=== PATIENT | female | born 1950 | race Caucasian/White ===

== ENCOUNTER 2017-11-29 15:30 | Emergency (ER) | payer MEDICARE, OTHER ==
[~2017-11-29] VITALS: Ht 162.6 cm; Wt 70.3 kg
--- OUTSIDE RECORDS SUMMARY | 2017-11-29 15:33 | XMS REPORT | Clinical Summary ---
Author Author [facility] [employer] Address Unknown Phone Unavailable Care Team Providers Care [facility] Hospitalist Name Role Phone Beni Uribe PCP Allergies Active Allergy Reactions Severity Noted Date Comments Prochlorperazine Other (See Comments) High 10/11/2017 Dystonia Iodine And Iodide Anaphylaxis High 04/05/2017 Containing Products Ioversol Anaphylaxis High 12/19/2007 THROAT SWELLING-INCIDENT REPORTED PER PATIENT DURING IVP 25 YEARS AGO (Iodine) Latex Rash High 08/08/2010 blisters Current Medications Prescription Sig. Disp. Refills Start End Date Status Date propranolol LA (INDERAL Take 120 mg by mouth Active LA) 120 MG 24 hr capsule daily. raloxifene (EVISTA) 60 mg Take 60 mg by mouth Active tablet daily. lisinopril Take 20 mg by mouth Active (PRINIVIL,ZESTRIL) 20 mg daily. tablet tiotropium-olodaterol Take 2 inhalations by Active (STIOLTO RESPIMAT) mouth every evening. 2.5-2.5 mcg/actuation inhalation solution potassium citrate Take 15 mEq by mouth 3 Active (UROCIT-K 15) 15 mEq (three) times a day with tablet extended release meals. docusate sodium (COLACE) Take 100 mg by mouth 2 Active 100 MG capsule (two) times a day. famotidine (PEPCID) 20 MG Take 20 mg by mouth 2 Active tablet (two) times a day. mycophenolate (CELLCEPT) Take 1,500 mg by mouth 2 Active 500 mg tablet (two) times a day. KRILL/OM-3/DHA/EPA/PHOSPH Take 1 capsule by mouth Active O/AST (MEGARED OMEGA-3 daily. KRILL OIL ORAL) butalbital-acetaminophen- Take 1 tablet by mouth Active caff (FIORICET, ESGIC) every 4 (four) hours as 50-325-40 mg per tablet needed for headaches. BIFIDOBACTERIUM INFANTIS Take 1 tablet by mouth Active (ALIGN ORAL) daily. venlafaxine (EFFEXOR) 75 Take 75 mg by mouth 2 Active MG tablet (two) times a day. 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 gabapentin (NEURONTIN) Take 600 mg by mouth 3 Active 600 mg tabletIndications: (three) times a day. 1 Intractable chronic tablet in the morning 2 migraine without aura and tablet in the evening with status migrainosus melatonin 5 mg Take 1 capsule by mouth Active capsuleIndications: Long nightly. term current use of systemic steroids cholecalciferol, vitamin Take 1 tablet by mouth Active D3, (VITAMIN D3) 5,000 daily. unit tabletIndications: Vitamin D deficiency predniSONE (DELTASONE) 1 TAKE 4 TABLETS EACH 360 tablet 1 11/09/19 05/10/20 Active mg tabletIndications: MORNING 18 18 Churg-Dottie syndrome predniSONE (DELTASONE) 5 3 tablets PO each 270 tablet 1 11/09/19 Active mg tabletIndications: morning. 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 2 tab each 18 ued night amitriptyline (ELAVIL) 50 Take 50 mg by mouth 10/09/19 Discontin MG tablet nightly. 18 ued SUMAtriptan (IMITREX) 50 Take 100 mg by mouth once 10/09/19 Discontin MG tablet as needed for migraine. 18 ued May repeat in 2 hours if unresolved. Do not exceed 200 mg in 24 hours. gabapentin (NEURONTIN) Take 300 mg by mouth 2 11/09/19 Discontin 300 mg capsule (two) times a day. 18 ued eszopiclone (LUNESTA) 2 Take 2 mg by mouth 11/09/19 Discontin MG tablet nightly. Take immediately 18 ued before bedtime omeprazole (PriLOSEC) 20 Take 20 mg by mouth 11/09/19 Discontin MG capsule daily. 18 ued acetaminophen-codeine Take 1-2 tablets by mouth 40 tablet 0 09/30/20 10/10/20 (TYLENOL WITH CODEINE #3) every 4 (four) hours as 17 17 300-30 mg per tablet needed for moderate pain for up to 10 days. predniSONE (DELTASONE) 20 3 tablets PO daily as 90 tablet 1 04/24/20 06/24/20 mg tabletIndications: directed 17 17 Churg-Dottie syndrome mycophenolate (CELLCEPT) Take 3 pills bid 180 tablet 4 04/25/2004/10 Discontin 500 mg tabletIndications: 17 18 ued Churg-Dottie syndrome predniSONE (DELTASONE) 5 Take 3 pills a day. 270 tablet 1 06/21/20 10/09/19 Discontin mg tablet 17 18 ued sulfamethoxazole-trimetho TAKE ONE (1) TABLET(S) BY 0 07/10/20 Discontin prim (BACTRIM DS) 800-160 MOUTH EVERY TWELVE HOURS 17 18 ued mg per tablet FOR 10 DAYS. famotidine (PEPCID) 20 MG TAKE ONE (1) TABLET(S) BY 0 07/18/20 Discontin tablet MOUTH TWICE A DAY. 17 18 ued mycophenolate (CELLCEPT) TAKE THREE (3) TABLET(S) 180 tablet 3 10/09/19 Discontin 500 mg tabletIndications: BY MOUTH TWICE A DAY. 18 18 ued Churg-Dottie syndrome predniSONE (DELTASONE) 5 Take 5 mg by mouth daily. 11/09/19 Discontin mg tablet Dose may fluctuate up to 18 ued 60mg daily. Has been on 5mg past 2 days. Doses less than 15mg appear to cause headaches. atorvastatin (LIPITOR) 40 Take 1 tablet (40 mg 30 tablet 0 10/11/19 11/09/19 Discontin MG tablet total) by mouth nightly 18 18 ued for 30 days. keTOROlac (TORadol) 10 mg Take 1 tablet (10 mg 20 tablet 0 10/11/19 10/16/19 tablet total) by mouth every 6 18 18 (six) hours as needed for moderate pain for up to 5 days. amoxicillin-pot Take 1 tablet by mouth 14 tablet 0 10/26/19 clavulanate (AUGMENTIN) every 12 (twelve) hours 18 18 875-125 mg per tablet for 7 days. Hospital, Clinic, or Ordered Dose Route Frequency Start End Date Status Other Facility Date Administered Medication keTOROlac (TORadol) 10 mg oral every 4 hours PRN 10/11/19 10/16/19 Ended tablet 10 mg 18 18 Active Problems Problem Noted Date Mixed hyperlipidemia 10/09/2017 Migraine with aura, intractable, with status migrainosus 10/08/2017 Diarrhea 06/23/2017 Intraventricular hemorrhage 05/27/2017 Obstructive hydrocephalus 05/27/2017 Intraparenchymal hematoma of brain 05/20/2017 Ascites 04/19/[address] of the abdomen 03/28/2017 Epigastric pain 03/28/2017 Early satiety 03/28/[address] scan 03/28/2017 Osteoporosis 05/25/2008 Encounters Date Type Specialty Care Team Description 11/08/2017 Office Visit Rheumatology Erick Arrieta MD Churg- Dottie syndrome (Primary Dx); Encounter for long-term (current) use of high-risk medication; 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; Intractable chronic migraine without aura and with status migrainosus; Vitamin D deficiency 11/07/2017 [facility] Radiology Erick Mane MD Renal calculus Encounter 11/07/2017 Ancillary Access Erick Mane MD Renal calculus Orders 11/07/2017 Transcribe Access Erick Mane MD Renal calculus ( Primary Orders Dx) 10/25/2017 Emergency Emergency Medicine Ben Patino MD Primary insomnia (Primary Deniz Proctor MD Dx); Cystitis 10/11/2017 Office Visit Rheumatology Erick Arrieta MD Churg- Dottie syndrome (Primary Dx); Encounter for long-term (current) use of high-risk medication; Intractable chronic migraine without aura and with status migrainosus; 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 10/11/2017 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, 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 10/09/2017 Orders Only Radiology Benitez Contreras 10/08/2017 Emergency Neurology Yasmany Avalos MD Migraine with aura, - Ronit Ramos MD intractable, with status 10/10/2017 migrainosus (Primary Dx); Intractable headache, unspecified chronicity pattern, unspecified headache type 10/08/2017 Procedure Pass Neurology 10/08/2017 Procedure Pass Neurology 10/08/2017 Procedure Pass Neurology 10/08/2017 Procedure Pass Neurology 10/08/2017 Procedure Pass Neurology 10/08/2017 Procedure Pass Neurology 09/23/2017 Hospital Radiology Erick Mane MD Renal calculus Encounter 09/23/2017 Transcribe Access Erick Mane MD Renal calculus ( Primary Orders Dx) 08/30/2017 Refill Rheumatology Erick Arrieta MD Churg-Dottie syndrome 07/19/2017 Office Visit Rheumatology Erick Arrieta MD Churg- Dottie syndrome (Primary Dx) 07/11/2017 Orders Only Rheumatology Erick Arrieta MD Churg- Dottie syndrome (Primary Dx); Encounter for long-term (current) use of high-risk medication; 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; Vitamin D deficiency 06/21/2017 Orders Only Rheumatology Tere Mcgrath MA 05/02/2017 Office Visit General Surgery Abhijeet Alcala MD Surgery follow-up (Primary Dx) 05/02/2017 [facility] Radiology Blue, Phuongdung Syl, Abdominal pain Encounter 05/02/2017 [facility] Radiology Blue, Phuongdung Syl, Abdominal pain , Encounter generalized; Cough 05/02/2017 Ancillary Radiology Blue, Phuongdung Syl, Abdominal pain Orders 05/02/2017 Transcribe Access Blue, Phuongdung Syl, Abdominal pain, Orders generalized (Primary Dx); Cough 04/29/2017 Telephone Rheumatology Tere Mcgrath MA 04/26/2017 Orders Only Rheumatology Tere Mcgrath MA Infrequent urination (Primary Dx); Acute cystitis without hematuria 04/24/2017 Lab Lab Erick Arrieta MD Churg-Dottie syndrome 04/24/2017 Office Visit Rheumatology Erick Arrieta MD Churg- Dottie syndrome (Primary Dx); 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; Encounter for long-term (current) use of high-risk medication; Anxiety and depression; Essential hypertension; Gastroesophageal reflux disease without esophagitis; Duodenal ulcer; Nephrolithiasis; Age-related osteoporosis without current pathological fracture 04/19/2017 [facility] General Surgery Abhijeet Alcala MD Ascites - Encounter 04/20/2017 04/19/2017 Procedure Pass General Surgery 04/19/2017 Surgery General Surgery Abhijeet Alcala MD LAPAROSCOPIC EXPLORATORY LAPAROTOMY AND OMENTAL BIOPSY and liver biopsy 04/17/2017 Anesthesia General Surgery [facility], Event Aniyah, DAY C[employer] COUNSELOR 04/17/2017 Orders Only GastroenterFrancesco Gill RN Other ascites (Primary Dx) 04/16/2017 Pre-Admit Pre-Admission Testing Abhijeet Alcala MD Pre- op testing (Primary Testing Dx) Appointment 04/16/2017 Lab Lab Caleb Ruvalcaba MD Other ascites 04/15/2017 Office Visit Gastroenterology Caleb Ruvalcaba MD Other ascites (Primary Dx); Epigastric pain; Abnormal CT of the abdomen; Early satiety; Diarrhea, unspecified type 04/15/2017 Telephone GastroenterCaleb Barr MD 04/05/2017 [facility] Radiology Caleb Ruvalcaba MD Other ascites Encounter 04/05/2017 Lab Caleb Cortez MD 04/05/2017 Orders Only GastroenterFrancesco Gill RN Other ascites (Primary Dx) 04/04/2017 Lab Caleb Cortez MD Pre-procedure lab exam; Other ascites 04/04/2017 Telephone GastroenterFrancesco Gill RN Pre- procedure lab exam (Primary Dx); Other ascites 04/03/2017 Orders Only Francesco Sanchez RN Other ascites (Primary Dx) 04/02/2017 Lab Lab Caleb Ruvalcaba MD Routine general medical examination at a health care facility (Primary Dx) 03/29/2017 Hospital Radiology Caleb Ruvalcaba MD Encounter 03/29/2017 Ancillary Radiology Caleb Ruvalcaba MD Orders 03/28/2017 Lab Lab Caleb Ruvalcaba MD Abnormal CT scan 03/28/2017 Office Visit GastroenterCaleb Barr MD Abnormal CT scan (Primary Dx); Early satiety; Abnormal CT of the abdomen; Epigastric pain after 11/28/2016 Immunizations Name Dates Previously Given Next Due FLUCELVAX QUAD PF (0.5mL 04/20/2017 syringe) Family History Medical History Relation Name Comments No Known Problems Brother Suicidality Brother Liver cancer Father Arrhythmia Mother Other Mother ITP Relation Name Status Comments Brother Alive Brother Father Mother Alive Social History Tobacco Use Types Packs/Day Years Used Date Never Smoker Smokeless Tobacco: Never Used Tobacco Cessation: Counseling Given: No Alcohol Use Drinks/Week oz/Week Comments No Sex Assigned at Date Recorded Not on file Last Filed Vital Signs Vital Sign Reading Time Taken Blood Pressure 139/87 11/08/2017 11:01 AM CDT Pulse 68 11/08/2017 11:01 AM CDT Temperature 36.6 C (97.8 F) 11/08/2017 11:01 AM CDT Respiratory Rate 18 10/25/2017 5:33 PM CDT Oxygen Saturation 98% 11/08/2017 11:01 AM CDT Inhaled Oxygen - - Concentration Weight 58.1 kg (128 lb) 11/08/2017 11:01 AM CDT Height 162.6 cm (5' 4") 11/08/2017 11:01 AM CDT Body Mass Index 21.97 11/08/2017 11:01 AM CDT Plan of Treatment Date Type Specialty Care Team Description 12/06/2017 Office Visit Rheumatology Erick Arrieta MD [address] [place] [address] [place] [address] [phone] 01/03/2018 Office Visit Rheumatology Erick Arrieta MD [address] [place] [address] [place] [address] [phone] 01/31/2018 Office Visit Rheumatology Erick Arrieta MD [address] [place] [address] [place] [address] [phone] Health Maintenance Due Date Last Done Comments COLONOSCOPY 1998 MAMMOGRAM 1998 SHINGRIX VACCINE (#1) 1998 PNEUMOCOCCAL-13 2013 INFLUENZA VACCINE 02/19/2018 04/20/2017, 04/04/2011, 04/01/2009, Additional history exists PNEUMOCOCCAL Completed 09/01/2003 POLYSACCHARIDE VACCINE AGE 65 AND OVER ZOSTER VACCINE Completed 10/05/2008 Procedures Procedure Name Priority Date/Time Associated Diagnosis Comments CA AN ELECTIVE Routine 04/19/2017 ENDOTRACHEAL AIRWAY 9:50 AM CDT Procedure Note - Emelyn Herrera MD - 04/19/2017 9:49 AM CDT Airway Performed by: EMELYN HERRERA Authorized by: EMELYN HERRERA Location: OR Urgency: Elective Difficult Airway: No Anesthesio logist: EMELYN HERRERA Performed by: anesthesio lian Preoxygena roya with 100% O2: Yes C-spine Precaution s Maintained Throughout : No Mask assessment prior to intubation : RSI-mask ventilatio n not attempted. Final Airway Type: Endotrache al airway Final Endotrache al Airway: ETT Cuffed: Yes Technique Used: Direct laryngosco py Devices/Me thods Used in Placement: Bougie Insertion Site: Oral Blade Type: Johnson Laryngosco pe Blade/Vide olaryngosc ope Blade Size: 2 ETT Size (mm): 7.0 Cuff at minimum occlusion pressure: Yes Measured from: Teeth ETT to Teeth (cm): 20 Placement Verified by: CO2 detection Laryngosc opic view: Grade IIa - partial view of glottis Rapid Sequence Induction (RSI): Yes Modified RSI: No Number of Attempts at Approach: 2 (attempt x 1 by resident, x1 by staff) LAPAROSCOPIC EXPLORATORY 04/19/2017 Ascites LAPAROTOMY AND OMENTAL 8:00 AM CDT BIOPSY and liver biopsy Case Notes REQ 0800 START; POSSIBLE EXTENDED STAY Special Needs REQ 0800 START; POSSIBLE EXTENDED STAY after 11/28/2016 Results * XR Kub Kidney Ureter Bladder (11/07/2017 2:40 PM) Only the most recent of 3 results within the time period is included. Specimen Performing Laboratory [facility] [address] [place] [address] Narrative EXAMINATION:XR KUB KIDNEY URETER BLADDER CLINICAL HISTORY:N20.0 Calculus of kidney, n20.0 COMPARISON:09/23/2017 IMPRESSION: 1.Was present throughout the colon. No intra-abdominal mass is seen. Suspicious osseous lesion is not seen. [facility]-[id number] Procedure Note Interface, Radiology Results Incoming - 11/07/2017 3:22 PM CDT EXAMINATION: XR KUB KIDNEY URETER BLADDER CLINICAL HISTORY: N20.0 Calculus of kidney, n20.0 COMPARISON: 09/23/2017 IMPRESSION: 1. Was present throughout the colon. No intra-abdominal mass is seen. Suspicious osseous lesion is not seen. [facility]-[id number] * Urinalysis (10/25/2017 6:20 PM) Component Value Ref Range Glucose, UA Negative Negative Bilirubin, UA Negative Negative Ketones, UA 1+ (A) Negative Specific gravity, UA =>1.030 1.001 - 1.035 Blood, UA Trace (A) Negative pH, UA 6.0 5.0 - 8.5 Protein, UA Negative Negative Urobilinogen, UA <2.0 <2.0 Nitrite, UA Positive (A) Negative Leukocyte esterase, UA Negative Negative Color, UA Yellow Appearance, UA Clear Specimen Performing Laboratory Urine DEPARTMENT OF PATHOLOGY AND GENOMIC MEDICINE, [place] [id number] [facility]. [address] [place] [address] * Gram stain (10/25/2017 6:19 PM) Only the most recent of 4 results within the time period is included. Component Value Ref Range Gram stain result No WBC's Many Gram negative rods Comment: Specimen Information Specimen Source: Urine Specimen Site: Urine, clean catch Specimen [facility]forming [facility] catch [address] [place] [address] * Urine culture (10/25/2017 6:19 PM) Only the most recent of 2 results within the time period is included. Component Value Ref Range Urine culture isolate Klebsiella pneumoniae >10-5 cfu/ml The performance characteristics of this assay on this isolate were validated by the Microbiology Laboratory at [facility]. This source has not been approved by the U.S. Food and Drug Administration. The results are not intended to be used as the sole means for clinical diagnosis or patient management. The Microbiology Laboratory is authorized under the clinical Laboratory Improvement Amendments of 1988 (CLIA-88) to perform high complexity testing. (A) Comment: Specimen Information Specimen Source: Urine Specimen Site: Urine, clean catch Urine culture isolate Streptococcus group B 10-4 cfu/ml (A) Urine culture isolate Mixed Gram positive dawson 10-3 cfu/ml (A) Specimen Performing Laboratory Urine - Urine, [facility] DEPARTMENT OF PATHOLOGY AND GENOMIC MEDICINE catch [address] [place] [address] Organism Antibiotic Method Susceptibility Klebsiella pneumoniae Ampicillin RUBEN >16 mcg/mL: Resistant Klebsiella pneumoniae Amoxicillin/Clavulanate RUBEN 4/2 mcg/mL: Susceptible Klebsiella pneumoniae Amikacin RUBEN <=4 mcg/mL: Susceptible Klebsiella pneumoniae Aztreonam RUBEN <=1 mcg/mL: Susceptible Klebsiella pneumoniae Ceftazidime RUBEN <=0.5 mcg/mL: Susceptible Klebsiella pneumoniae Ciprofloxacin RUBEN 1 mcg/mL: Susceptible Klebsiella pneumoniae Ceftriaxone RUBEN <=0.5 mcg/mL: Susceptible Klebsiella pneumoniae Cefuroxime Sodium RUBEN 16 mcg/mL: Resistant Klebsiella pneumoniae Cefazolin RUBEN 4 mcg/mL: Resistant Klebsiella pneumoniae Cefipime RUBEN <=0.5 mcg/mL: Susceptible Klebsiella pneumoniae Nitrofurantoin RUBEN >64 mcg/mL: Resistant Klebsiella pneumoniae Cefoxitin RUBEN 16 mcg/mL: Resistant Klebsiella pneumoniae Gentamicin RUBEN 1 mcg/mL: Susceptible Klebsiella pneumoniae Imipenem RUBEN <=0.25 mcg/mL: Susceptible Klebsiella pneumoniae Levofloxacin RUBEN <=1 mcg/mL: Susceptible Klebsiella pneumoniae Meropenem RUBEN <=0.125 mcg/mL: Susceptible Klebsiella pneumoniae Tobramycin RUBEN 1 mcg/mL: Susceptible Klebsiella pneumoniae Ampicillin/Sulbactam RUBEN 16/8 mcg/mL: Resistant Klebsiella pneumoniae Trimethoprim/Sulfamethoxa RUBEN >2/38 mcg/mL: Resistant zole Klebsiella pneumoniae Tetracycline RUBEN 4 mcg/mL: Susceptible Klebsiella pneumoniae Piperacillin/Tazobactam RUBEN 8/4 mcg/mL: Susceptible Klebsiella pneumoniae Ertapenem RUBEN <=0.125 mcg/mL: Susceptible Klebsiella pneumoniae Tigecycline RUBEN 2 mcg/mL: Susceptible * CT Head Wo Contrast (10/25/2017 5:57 PM) Specimen Performing Laboratory [address] [address] Narrative EXAMINATION:CT HEAD WO CONTRAST CLINICAL HISTORY:HEADACHE COMPARISON:October 09, 2017 TECHNIQUE: CT imaging was performed with iterative reconstruction technique and/ or automated exposure control to reduce radiation dose. Findings: No intracranial hemorrhage, acute transcortical ischemia, extra-axial fluid collections or parenchymal mass lesions. No skull fractures or aggressive bony lesions. Stable chronic insult in left basal ganglia. Visualized paranasal sinuses and mastoid air cells are clear. Right frontal louise hole. IMPRESSION: No acute intracranial abnormalities. [id number] Procedure Note Interface, Radiology Results Incoming - 10/25/2017 6:04 PM CDT EXAMINATION: CT HEAD WO CONTRAST CLINICAL HISTORY: HEADACHE COMPARISON: October 09, 2017 TECHNIQUE: CT imaging was performed with iterative reconstruction technique and/ or automated exposure control to reduce radiation dose. Findings: No intracranial hemorrhage, acute transcortical ischemia, extra-axial fluid collections or parenchymal mass lesions. No skull fractures or aggressive bony lesions. Stable chronic insult in left basal ganglia. Visualized paranasal sinuses and mastoid air cells are clear. Right frontal louise hole. IMPRESSION: No acute intracranial abnormalities. [id number] * West Nile virus by PCR, CSF (10/09/2017 12:17 PM) Component Value Ref Range West Nile virus PCR, CSF Not-Detected Not-Detected West Nile virus PCR, CSF See link below for PDF Lab ReportComment: Specimen Performing Laboratory [facility] DEPARTMENT OF PATHOLOGY AND GENOMIC MEDICINE [address] [place] [address] * EMANUEL virus, quantitative PCR (10/09/2017 12:17 PM) Component Value Ref Range EMANUEL virus result Not-Detected Not-Detected copies/mL EMANUEL virus qPCR quant See link below for PDF Lab ReportComment: Specimen Performing Laboratory [facility] [place] [address] * Cytomegalovirus by PCR (10/09/2017 12:17 PM) Component Value Ref Range Cytomegalovirus by PCR Not-Detected Not-Detected IU/mL Cytomegalovirus by PCR See link below for PDF Lab ReportComment: Specimen Performing Laboratory [facility] DEPARTMENT OF PATHOLOGY [facility] MEDICINE [address] [place] [address] * Varicella zoster by PCR (10/09/2017 12:17 PM) Component Value Ref Range VZV result Not-Detected Not-Detected copies/mL Varicella zoster, PCR See link below for PDF Lab ReportComment: Specimen Performing Laboratory [facility] DEPARTMENT OF PATHOLOGY AND GENOMIC MEDICINE [address] [place] [address] * Herpes simplex virus by PCR (10/09/2017 12:17 PM) Component Value Ref Range Herpes virus, PCR Not-Detected Not-Detected Herpes virus, PCR See link below for PDF Lab ReportComment: Specimen Performing Laboratory [facility] [place] [address] * Flow cytometry evaluation (10/09/2017 12:17 PM) Component Value Ref Range Flow cytometry evaluation See link below for PDF Lab Report Specimen Performing Laboratory [facility] DEPARTMENT OF PATHOLOGY AND GENOMIC MEDICINE [address] [place], [place] [id number] * Ulises Duncan Virus (EBV) by PCR (10/09/2017 12:17 PM) Component Value Ref Range Ulises Duncan virus, PCR Not-Detected Not-Detected copies/mL Ulises Duncan virus, PCR See link below for PDF Lab ReportComment: Specimen Performing Laboratory [facility] DEPARTMENT OF PATHOLOGY AND GENOMIC MEDICINE [address] [place] [id number] * IR Lumbar Puncture by Radiology (10/09/2017 11:40 AM) Specimen Performing Laboratory [place] [id number] Narrative EXAMINATION:IR LUMBAR PUNCTURE COMPARISON:None CLINICAL HISTORY:headache PROCEDURE: Local anesthesia was achieved with 1% lidocaine. Under fluoroscopic guidance a 22-gauge spinal needle was placed into the thecal sac at L4-5. The opening pressure was less than 12 cm of water. 21 cc's of clear colorless CSF were removed and sent to lab for analysis. The patient tolerated the procedure well and was returned to AOD for recovery. IMPRESSION: Uneventful lumbar puncture. Note: Total fluoroscopy time was 1 minute 21 seconds. 0 radiographs. [facility]-[id number] Procedure Note [facility], Radiology Results Incoming - 10/09/2017 1:27 PM CDT EXAMINATION: IR LUMBAR PUNCTURE COMPARISON: None CLINICAL HISTORY: headache PROCEDURE: Local anesthesia was achieved with 1% lidocaine. Under fluoroscopic guidance a 22-gauge spinal needle was placed into the thecal sac at L4-5. The opening pressure was less than 12 cm of water. 21 cc's of clear colorless CSF were removed and sent to lab for analysis. The patient tolerated the procedure well and was returned to AOD for recovery. IMPRESSION: Uneventful lumbar puncture. Note: Total fluoroscopy time was 1 minute 21 seconds. 0 radiographs. [facility]-[id number] * IgG synthesis rate study (10/09/2017 11:37 AM) Component Value Ref Range IgG albumin ratio, CSF 0.07 0.00 - 0.23 IgG index, CSF 0.48 0.01 - 0.63 IgG synthetic rate 0.86 -9.90 - 3.30 mg/day Q-albumin ratio, CSF 8.13 (H) 2.40 - 8.10 IgG, CSF 2.18 1.00 - 3.00 mg/dL Albumin, CSF 30.09 (H) 10.00 - 30.00 mg/dL IgG 554 (L) 700 - 1,600 mg/dL Albumin, S 3,700.0 3,640.0 - 5,304.0 mg/dL Specimen Performing Laboratory Cerebrospinal fluid [facility] DEPARTMENT OF PATHOLOGY AND [facility] MEDICINE [address] [place] [id number] * West Nile virus antibody panel, CSF (10/09/2017 11:37 AM) Component Value Ref Range West Nile IgG, CSF 0.05 <=1.29 IV Comment: INTERPRETIVE INFORMATION: West Nile Virus Ab IgG by MIKAELA, CSF 1.29 IV or less ....... Negative: No significant level of West Nile virus IgG antibody detected. 1.30 - 1.49 IV ........ Equivocal: Questionable presence of West Nile virus IgG antibody detected. Repeat testing in 10-14 days may be helpful. 1.50 IV or greater .... Positive: Presence of IgG antibody to West Nile virus detected, suggestive of current or past infection. This test is intended to be used as a semi-quantitative means of detecting West Nile virus-specific IgG in CSF samples in which there is a clinical suspicion of West Nile Virus infection. This test should not be used solely for quantitative purposes, nor should the results be used without correlation to clinical history or other data. Because other members of the Flaviviridae family, such as [place] encephalitis virus, show extensive cross-reactivity with West Nile virus, serologic testing specific for these species should be considered. The detection of antibodies to West Nile virus in cerebrospinal fluid may indicate central nervous system infection. However, consideration must be given to possible contamination by blood or transfer of serum antibodies across the blood-brain barrier. Test developed and characteristics determined by [facility]. See Compliance Statement B: [employer]/[facility] West Nile IgM, CSF 0.00 <=0.89 IV Comment: INTERPRETIVE INFORMATION: West Nile Virus Ab IgM by MIKAELA, CSF 0.89 IV or less ...... Negative - No significant level of West Nile virus IgM antibody detected. 0.90-1.10 IV ......... Equivocal - Questionable presence of West Nile virus IgM antibody detected. Repeat testing in 10-14 days may be helpful. 1.11 IV or greater ... Positive - Presence of IgM antibody to West Nile virus detected, suggestive of current or recent infection. This test is intended to be used as a semi-quantitative means of detecting West Nile virus-specific IgM in CSF samples in which there is a clinical suspicion of West Nile virus infection. This test should not be used solely for quantitative purposes, nor should the results be used without correlation to clinical history or other data. Because other members of the Flaviviridae family, such as [place] encephalitis virus, show extensive cross-reactivity with West Nile virus, serologic testing specific for these species should be considered. The detection of antibodies to West Nile virus in cerebrospinal fluid may indicate central nervous system infection. However, consideration must be given to possible contamination by blood or transfer of serum antibodies across the blood-brain barrier. Test developed and characteristics determined by [facility]. See Compliance Statement B: [employer]/CS Performed by [facility], [address] [place] [id number] [email or web address], Raad Flores MD - Lab. Director Specimen Performing Laboratory Cerebrospinal fluid [address] [address] * AFB culture (10/09/2017 11:37 AM) Only the most recent of 2 results within the time period is included. Component Value Ref Range AFB culture isolate No growth after 6 weeks of incubation. Comment: Specimen Information Specimen Source: CSF (Spinal Fluid) Specimen Site: CSF (spinal fluid) Specimen Performing Laboratory Cerebrospinal fluid - CSF [facility] DEPARTMENT OF PATHOLOGY AND GENOMIC MEDICINE (spinal fluid) [address] [place] [address] * Cryptococcal antigen, screen (10/09/2017 11:37 AM) Component Value Ref Range Cryptococcal Ag Negative - No Cryptococcus antigen detected. Comment: Specimen Information Specimen Source: CSF (Spinal Fluid) Specimen Site: CSF (spinal fluid) Specimen Performing Laboratory Cerebrospinal fluid - CSF [facility] DEPARTMENT OF PATHOLOGY AND GENOMIC MEDICINE (spinal fluid) [address] [place] [address] * Oligoclonal banding, CSF (10/09/2017 11:37 AM) Component Value Ref Range Protein, CSF 40 15 - 45 mg/dL Prealbumin, CSF 5.0 3.5 - 11.1 % Albumin, CSF 64.1 40.8 - 66.2 % Alpha 1, CSF 3.6 2.3 - 6.4 % Alpha 2, CSF 6.6 6.1 - 12.6 % Beta, CSF 12.5 11.7 - 24.1 % Gamma, CSF 8.2 5.6 - 12.2 % CSF extended See Comment interpretation Comment: An abnormal CSF protein study with increased Q-albumin but total protein within normal limits suggesting minimal disruption of the blood brain barrier. No oligoclonal bands are seen. CSF interpretation See CommentComment: Yvonne Nixon, PhD; Imelda Millard, PhD; Lizeth Johnson MD Specimen Performing Laboratory Cerebrospinal fluid [facility] DEPARTMENT OF PATHOLOGY AND GENOMIC MEDICINE [address] [place] [address] * CSF culture (10/09/2017 11:37 AM) Component Value Ref Range CSF culture isolate No growth after 3 days. Comment: Specimen Information Specimen Source: CSF (Spinal Fluid) Specimen Site: CSF (spinal fluid) Specimen Performing Laboratory Cerebrospinal fluid - CSF [facility] DEPARTMENT OF PATHOLOGY AND GENOMIC [facility] (spinal fluid) [address] [place] [address] * Fungus culture (10/09/2017 11:37 AM) Component Value Ref Range Fungus culture isolate No growth after 4 weeks of incubation. Comment: Specimen Information Specimen Source: CSF (Spinal Fluid) Specimen Site: CSF (spinal fluid) Specimen Performing Laboratory Cerebrospinal fluid - CSF [facility] DEPARTMENT OF PATHOLOGY AND GENOMIC MEDICINE (spinal fluid) [address] [place] [address] * CSF cell count with differential (10/09/2017 11:37 AM) Component Value Ref Range Color, CSF Colorless Appearance, CSF Clear RBC, CSF 1 0 - 1 /CMM WBC, CSF 1 0 - 5 /CMM CSF mononuclear cell 1/CMM Specimen Performing Laboratory Cerebrospinal fluid [facility] DEPARTMENT OF PATHOLOGY AND GENOMIC MEDICINE [address] [place] [address] * Glucose level, CSF (10/09/2017 11:37 AM) Component Value Ref Range Glucose, CSF 66 40 - 70 mg/dL Specimen Performing Laboratory Cerebrospinal fluid [facility] DEPARTMENT OF PATHOLOGY AND GENOMIC MEDICINE [address] [place] [address] * MRI Brain W Wo Contrast (10/09/2017 8:46 AM) Specimen [place] [address] Narrative EXAMINATION: MRI BRAIN W WO CONTRAST COMPARISON: None CLINICAL HISTORY Vasculitis. TECHNIQUE: Multiplanar multisequence examination was performed with and without contrast FINDINGS: There is no evidence of diffusion restriction. The ventricles and subarachnoid spaces are diffusely dilated. There is a chronic hemorrhagic insult in the left basal ganglia with subacute to chronic blood degradation byproducts and loss of volume. There are multiple small foci of chronic microvascular ischemia in the centrum semiovale bilaterally. There are no abnormal enhancing lesions within the brain parenchyma or the leptomeninges. Comparison to an outside MRI done October 07, 2017 shows no interval changes. 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 Mild involutional changes and few foci of chronic microvascular ischemia in the centrum semiovale bilaterally. No abnormal enhancing lesions. [id number] Procedure Note Interface, Radiology Results Incoming - 10/09/2017 8:53 AM CDT EXAMINATION: MRI BRAIN W WO CONTRAST COMPARISON: None CLINICAL HISTORY Vasculitis. TECHNIQUE: Multiplanar multisequence examination was performed with and without contrast FINDINGS: There is no evidence of diffusion restriction. The ventricles and subarachnoid spaces are diffusely dilated. There is a chronic hemorrhagic insult in the left basal ganglia with subacute to chronic blood degradation byproducts and loss of volume. There are multiple small foci of chronic microvascular ischemia in the centrum semiovale bilaterally. There are no abnormal enhancing lesions within the brain parenchyma or the leptomeninges. Comparison to an outside MRI done October 07, 2017 shows no interval changes. 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 Mild involutional changes and few foci of chronic microvascular ischemia in the centrum semiovale bilaterally. No abnormal enhancing lesions. [facility]-[id number] * MRI Cervical Spine Wo Contrast (10/09/2017 8:20 AM) Specimen Performing Laboratory [facility] [address] [place] [address] Narrative EXAMINATION:MRI CERVICAL SPINE WO CONTRAST COMPARISON:None CLINICAL HISTORY:Pain FINDINGS: There is mild C3-4 degenerative disc change with a minimal disc bulge. The discs are otherwise unremarkable. There is no malalignment, and the spinal canal is of normal diameter. The neural foramina are patent. The cord is of normal size and contains no areas of abnormal signal intensity. The craniovertebral junction and visualized portion of the posterior fossa are normal. The bone marrow is normal. IMPRESSION: Unremarkable study. [facility]-[id number] Procedure Note Interface, Radiology Results - 10/09/2017 8:28 AM CDT EXAMINATION: MRI CERVICAL SPINE WO CONTRAST COMPARISON: None CLINICAL HISTORY: Pain FINDINGS: There is mild C3-4 degenerative disc change with a minimal disc bulge. The discs are otherwise unremarkable. There is no malalignment, and the spinal canal is of normal diameter. The neural foramina are patent. The cord is of normal size and contains no areas of abnormal signal intensity. The craniovertebral junction and visualized portion of the posterior fossa are normal. The bone marrow is normal. IMPRESSION: Unremarkable study. [facility]-[id number] * MRA Head Wo Contrast (10/09/2017 8:19 AM) Specimen Performing Laboratory [facility] [address] [place] [address] Narrative EXAMINATION:MRA HEAD WO CONTRAST CLINICAL HISTORY:STROKE COMPARISON: None. FINDINGS: Noncontrast 3-D [id number] MRA of the head is interpreted. Source images, multiplanar reformats, and three-dimensional reformats are provided. No proximal branch occlusion or high-grade stenosis is seen. No aneurysm or vascular malformation is identified. There is a origin the left [employer]. The right vertebral artery is dominant. IMPRESSION: Unremarkable MRA of the head. [facility]-[id number] Procedure Note Interface, Radiology Results Incoming - 10/09/2017 8:25 AM CDT EXAMINATION: MRA HEAD WO CONTRAST CLINICAL HISTORY: STROKE COMPARISON: None. FINDINGS: Noncontrast 3-D [id number] MRA of the head is interpreted. Source images, multiplanar reformats, and three-dimensional reformats are provided. No proximal branch occlusion or high-grade stenosis is seen. No aneurysm or vascular malformation is identified. There is a origin the left [employer]. The right vertebral artery is dominant. IMPRESSION: Unremarkable MRA of the head. [id number] * MRA Neck Wo Contrast (10/09/2017 8:19 AM) Specimen Performing Laboratory [facility] [address] [place] [address] Narrative EXAMINATION:MRA NECK WO CONTRAST CLINICAL HISTORY:STROKE COMPARISON:None. TECHNIQUE: [id number] MR angiography was performed without contrast and includes 3-D MIP image reconstructions FINDINGS: The visualized distal common carotid artery cervical segments and bifurcations are patent. The visualized proximal internal carotid artery cervical segments are patent and show no evidence of stenosis by NASCET criteria. There is vertebral artery patency with right vertebral dominance. There is no definite intimal dissection. IMPRESSION: Essentially unremarkable examination. No definite ICA stenosis by NASCET criteria. [id number] Procedure Note [facility], Radiology Results Incoming - 10/09/2017 8:24 AM CDT EXAMINATION: MRA NECK WO CONTRAST CLINICAL HISTORY: STROKE COMPARISON: None. TECHNIQUE: Ouzo-ue-qvnnli MR angiography was performed without contrast and includes 3-D MIP image reconstructions FINDINGS: The visualized distal common carotid artery cervical segments and bifurcations are patent. The visualized proximal internal carotid artery cervical segments are patent and show no evidence of stenosis by NASCET criteria. There is vertebral artery patency with right vertebral dominance. There is no definite intimal dissection. IMPRESSION: Essentially unremarkable examination. No definite ICA stenosis by NASCET criteria. [id number] * Syphilis treponemal IgG (10/08/2017 8:45 PM) Component Value Ref Range Syphilis treponemal IgG Non-reactiveComment: Non-reactive: No serological Non-reactive evidence of Syphilis infection Specimen Performing Laboratory Serum [facility] DEPARTMENT OF PATHOLOGY AND GENOMIC MEDICINE [address] [place] [address] * Homocystine, plasma (10/08/2017 8:45 PM) Component Value Ref Range Homocysteine 12.7 0.0 - 15.0 umol/L Comment: The risk for coronary vascular disease increases progressively with homocysteine concentration. A 3.4 times greater risk is associated with a homocysteine concentration of greater than 15.8 umol/L as compared to a concentration below 14.1 umol/L. Specimen Performing Laboratory Plasma specimen [facility] DEPARTMENT OF PATHOLOGY AND GENOMIC MEDICINE [address] [place] [address] * Vitamin D 25 hydroxy level (10/08/2017 8:45 PM) Only the most recent of 2 results within the time period is included. Component Value Ref Range Vitamin D, 25-hydroxy 12.6 (L) 30.0 - 150.0 ng/mL Comment: This assay reports the sum of 25-hydroxy vitamin D3 and 25-hydroxy vitamin D2. Reference range: 0-17 years: Deficiency: less than 20ng/mL Optimum level: greater than or equal to 20 ng/mL. 18 years and older: Deficiency: less than 20ng/mL Insufficiency: 20-29 ng/mL Optimum Level: 30-80 ng/mL The assay reportable range is 3.4 155.9 ng/mL. Levels higher than 150 ng/mL may be associated with toxicity. If toxicity is clinically suspected and the reported result is >155.9 ng/mL,contact lab for alternative methods to obtain a definitive level. If separate quantitation of 25-hydroxy vitamin D3 and 25-hydroxy vitamin D2 is needed, please contact lab for alternative methods. Specimen Performing Laboratory Blood [facility] DEPARTMENT OF PATHOLOGY AND GENOMIC MEDICINE [address] [place] [address] * HIV 1, 2 antibody (10/08/2017 8:45 PM) Component Value Ref Range HIV 1, 2 antibody Non-reactive Non-reactive Comment: Starting from October 18 2015, 4th generation HIV screening and confirmation assays are in use at [facility], consistent with the CDC-recommended algorithm. The screening test detects antibodies to HIV-1, HIV-2 and the p24 antigen. Positive screening results will be automatically reflexed to a HIV-1/HIV-2 differentiation assay. Indeterminant HIV-1 results will be further automatically reflexed to a nucleic acid test for detection of acute infection. Western blot will no longer be performed as a confirmation test. For a quick reference guide on the testing algorithm, please refer to: http://stacks.cdc.gov/view/cdc/68924. Specimen Performing Laboratory Blood [facility] DEPARTMENT OF PATHOLOGY AND GENOMIC MEDICINE [address] [place] [address] * Anti-neutrophilic cytoplasmic Abs panel (10/08/2017 8:45 PM) Only the most recent of 2 results within the time period is included. Component Value Ref Range ANCA screen Negative Negative Specimen Performing Laboratory Blood [facility] DEPARTMENT OF PATHOLOGY AND [address] [address] * Sedimentation rate (10/08/2017 8:45 PM) Only the most recent of 2 results within the time period is included. Component Value Ref Range Sedimentation rate 5 0 - 20 mm/hr Specimen Performing Laboratory Blood [facility] DEPARTMENT OF PATHOLOGY AND GENOMIC MEDICINE [address] [place] [address] * Rheumatoid factor (10/08/2017 8:45 PM) Component Value Ref Range Rheumatoid factor <10 0 - 13 IU/mL Specimen Performing Laboratory Plasma specimen [facility] DEPARTMENT OF PATHOLOGY AND GENOMIC MEDICINE [address] [place] [address] * C-reactive protein (10/08/2017 8:45 PM) Only the most recent of 3 results within the time period is included. Component Value Ref Range CRP <0.30 0.00 - 0.50 mg/dL Specimen Performing Laboratory Plasma specimen [facility] DEPARTMENT OF PATHOLOGY AND [facility] MEDICINE [address] [place] [address] * TARAH (10/08/2017 8:45 PM) Only the most recent of 2 results within the time period is included. Component Value Ref Range TARAH screen Negative Negative Specimen Performing Laboratory Blood [facility] DEPARTMENT OF PATHOLOGY [address] [address] * T3 (10/08/2017 8:45 PM) Component Value Ref Range T3 108 80 - 200 ng/dL Specimen Performing Laboratory Plasma specimen [facility] DEPARTMENT OF PATHOLOGY AND GENOMIC MEDICINE [address] [place] [address] * T4, free (10/08/2017 8:45 PM) Component Value Ref Range T4, free 1.4 0.9 - 1.7 ng/dL Specimen Performing Laboratory Plasma specimen [facility] DEPARTMENT OF PATHOLOGY [address] [address] * Folate RBC (group test) (10/08/2017 8:45 PM) Component Value Ref Range RBC folate 832 499 - 1,504 ng/mL Specimen Performing Laboratory Blood [facility] DEPARTMENT OF PATHOLOGY AND [facility]ICINE [address] [place] [address] * Folate level (10/08/2017 8:45 PM) Component Value Ref Range Folate 11.3 4.8 - 24.2 ng/mL Specimen Performing Laboratory Serum [facility] DEPARTMENT OF PATHOLOGY [address] [address] * Lipid panel (10/08/2017 8:45 PM) Component Value Ref Range Cholesterol 277 (H) <200 mg/dL Triglycerides 106 <150 mg/dL HDL cholesterol 84 >40 mg/dL LDL cholesterol 175 (H)Comment: Result obtained by direct LDL <100 mg/dL measurement Lipid panel SeeBelow interpretation Comment: Total Cholesterol (mg/dL) <200 Desirable 200-239 Borderline-high >=240 High Triglycerides (mg/dL) <150 Normal 150-199 Borderline-high 200-499 High >=500 Very high HDL Cholesterol (mg/dL) <40 Low (male) <40 Low (female) LDL Cholesterol (mg/dL) <100 Optimal 100-129 Near or above optimal 130-159 Borderline-high 160-189 High >=190 Very high Risk Catergories that modify LDL goals. Risk Catergories LDL goal (mg/dL) CHD and CHD risk equivalent <100 (10-year risk >20%) Multiple (2+) risk factors <130 (10-year risk=<20%) 0-1 risk factors <160 (<10-year risk) Defining levels of lipids in metabolic syndrome Triglycerides >=150 mg/dL HDL Cholesterol Men <40 mg/dL Women <40 mg/dL Non-HDL cholesterol is a second target for therapy in persons with high triglycerides (>=200 mg/dL) Specimen Performing Laboratory Plasma specimen [facility] DEPARTMENT OF PATHOLOGY AND GENOMIC MEDICINE [address] [place] [address] * C3 complement component (10/08/2017 7:20 PM) Only the most recent of 2 results within the time period is included. Component Value Ref Range C3 complement 130 90 - 180 mg/dL Specimen Performing Laboratory Plasma specimen [facility] DE[place]MENT [place] [address] * C4 complement component (10/08/2017 7:20 PM) Only the most recent of 2 results within the time period is included. Component Value Ref Range C4 complement 29 10 - 40 mg/dL Specimen Performing Laboratory Plasma specimen [facility] DEPARTMENT [place] [address] * CT Stroke Brain Wo Contrast (10/08/2017 5:42 PM) Specimen Performing Laboratory [facility] [address] [place] [address] Narrative EXAMINATION: CT STROKE BRAIN WO CONTRAST COMPARISON: September 19, 2017 CLINICAL HISTORY STROKE. TECHNIQUE: Non-contrast CT scan of the head with thin-section contiguous transaxial images from the skull base to the vertex. CT scans are performed using radiation dose reduction techniques. Technical factors are evaluated and adjusted to ensure appropriate moderation of exposure. Automated dose management technology is applied to adjust radiation exposure while achieving a highly diagnostic quality image. FINDINGS: Nonenhanced emergency cranial CT was performed across the 17 34 hours. There is generalized ventricular and sulcal dilatation. There are chronic lacunar ischemic changes in the left hemisphere within the left basal ganglia, associated with volume loss. There is no acute hemorrhage or extra-axial mass or fluid collection. There are no hyperdense vessels. Overall, there are no interval changes. IMPRESSION: Stable involutional changes. Stable chronic lacunar ischemic changes in the left basal ganglia. No acute hemorrhage. Findings were discussed with and acknowledged by YASMANY AVALOS at 2017 5:47 PM. [facility]-[id number] Procedure Note Hm Interface, Radiology Results Incoming - 10/08/2017 5:51 PM CDT EXAMINATION: CT STROKE BRAIN WO CONTRAST COMPARISON: September 19, 2017 CLINICAL HISTORY STROKE. TECHNIQUE: Non-contrast CT scan of the head with thin-section contiguous transaxial images from the skull base to the vertex. CT scans are performed using radiation dose reduction techniques. Technical factors are evaluated and adjusted to ensure appropriate moderation of exposure. Automated dose management technology is applied to adjust radiation exposure while achieving a highly diagnostic quality image. FINDINGS: Nonenhanced emergency cranial CT was performed across the 17 34 hours. There is generalized ventricular and sulcal dilatation. There are chronic lacunar ischemic changes in the left hemisphere within the left basal ganglia, associated with volume loss. There is no acute hemorrhage or extra-axial mass or fluid collection. There are no hyperdense vessels. Overall, there are no interval changes. IMPRESSION: Stable involutional changes. Stable chronic lacunar ischemic changes in the left basal ganglia. No acute hemorrhage. Findings were discussed with and acknowledged by YASMANY AVALOS at 2017 5:47 PM. [facility]-[id number] * Urinalysis screen and microscopy, with reflex to culture (10/08/2017 5:30 PM) Component Value Ref Range Specimen site Clean catch Color, UA Yellow Appearance, UA Clear Specific gravity, UA 1.017 1.001 - 1.035 pH, UA 6.0 5.0 - 8.5 Protein, UA Negative Negative Glucose, UA Negative Negative Ketones, UA Trace (A) Negative Bilirubin, UA Negative Negative Blood, UA Negative Negative Nitrite, UA Positive (A) Negative Urobilinogen, UA <2.0 <2.0 Leukocyte esterase, UA Negative Negative Epithelial cells, UA 1 /HPF WBC, UA 5 (H) 0 - 4 /HPF RBC, UA 3 (H) 0 - 2 /HPF Bacteria, UA Moderate (A) None seen Yeast, UA None seen Yeast with pseudohyphae, None seen UA Specimen Performing Laboratory Urine [facility] DEPARTMENT OF PATHOLOGY AND GENOMIC MEDICINE [address] [place] [address] * Estimated GFR (10/08/2017 5:20 PM) Only the most recent of 6 results within the time period is included. Component Value Ref Range GFR Non Af Amer >90 mL/min/1.73 m2 GFR Af Amer >90 mL/min/1.73 m2 Comment: Chronic kidney disease: <60 mL/min/1.73m2 Kidney failure: <15 mL/min/1.73m2 The estimated GFR is calculated from the IDMS-traceable Modification of Diet in Renal Disease Equation. The accuracy of the calculation is poor when the creatinine is normal. Calculated values >90 mL/min/1.73m2 are not reported. This equation has not been validated in children (<18 years), women, the elderly (>70 years), or ethnic groups other than Caucasians and Americans. Specimen Performing Laboratory Plasma specimen [facility] DEPARTMENT OF PATHOLOGY AND [address] [address] * Troponin (10/08/2017 5:20 PM) Component Value Ref Range Troponin <0.30 0.00 - 0.30 ng/mL Comment: 0.30 - 1.49 ng/ml May indicate increased risk of acute coronary syndrome. >=1.5 ng/ml Consistent with acute myocardial infarction. The diagnostic value of a single normal or non-diagnostic result is questionable. Serial samples at 2-6 hour intervals are required to rule out acute myocardial injury. Specimen Performing Laboratory Plasma specimen [facility] DEPARTMENT OF PATHOLOGY AND [address] [address] * Partial thromboplastin time, activated (10/08/2017 5:20 PM) Only the most recent of 4 results within the time period is included. Component Value Ref Range PTT 25.9 23.0 - 36.0 sec Comment: PTT therapeutic range for unfractionated heparin is 61.0-112.0 seconds which corresponds to Anti-Xa 0.3-0.7 U/ml. Specimen Performing Laboratory Blood [facility] DEPARTMENT OF PATHOLOGY AND [facility] MEDICINE [address] [place] [address] * Prothrombin time with INR (10/08/2017 5:20 PM) Only the most recent of 4 results within the time period is included. Component Value Ref Range Prothrombin time 12.6 12.0 - 15.0 sec INR 0.9 Comment: The International Normalized Ratio (INR) is a therapeutic monitoring tool for patients who are stable on oral anticoagulant therapy. An INR of 2.0-3.0 is suggested for deep vein thrombosis/pulmonary embolism. Specimen Performing Laboratory Blood [facility] DEPARTMENT OF PATHOLOGY AND GENOMIC MEDICINE [address] [place], [place] [id number] * CBC with platelet and differential (10/08/2017 5:20 PM) Only the most recent of 5 results within the time period is included. Component Value Ref Range WBC 5.46 4.50 - 11.00 k/uL RBC 4.51 4.20 - 5.50 m/uL HGB 14.0 12.0 - 16.0 g/dL HCT 43.3 37.0 - 47.0 % MCV 96.0 82.0 - 100.0 fL MCH 31.0 27.0 - 34.0 pg MCHC 32.3 31.0 - 37.0 g/dL RDW - SD 42.2 37.0 - 55.0 fL MPV 9.7 8.8 - 13.2 fL Platelet count 209 150 - 400 k/uL Nucleated RBC 0.00 /100 WBC Neutrophils 82.2 (H) 39.0 - 69.0 % Lymphocytes 10.6 (L) 25.0 - 45.0 % Monocytes 6.0 0.0 - 10.0 % Eosinophils 0.5 0.0 - 5.0 % Basophils 0.2 0.0 - 1.0 % Immature granulocytes 0.5Comment: "Immature granulocytes" 0.0 - 1.0 % (promyelocytes, myelocytes, metamyelocytes) Specimen Performing Laboratory Blood [facility] DEPARTMENT OF PATHOLOGY AND [facility]INE [address] [place] [address] * B natriuretic peptide (10/08/2017 5:20 PM) Component Value Ref Range BNP 52 0 - 100 pg/mL Specimen Performing Laboratory Blood [facility] DEPARTMENT OF PATHOLOGY AND [facility] [address] [place] [address] * Lactic acid level (10/08/2017 5:20 PM) Component Value Ref Range Lactic acid 1.3 0.5 - 2.2 mmol/L Specimen Performing Laboratory Plasma specimen [facility] DEPARTMENT OF PATHOLOGY AND [facility] [address] [place], [place] [id number] * Comprehensive metabolic panel (10/08/2017 5:20 PM) Only the most recent of 5 results within the time period is included. Component Value Ref Range Sodium 140 135 - 148 mEq/L Potassium 4.0 3.5 - 5.0 mEq/L Chloride 100 98 - 112 mEq/L CO2 28 24 - 31 mEq/L Anion gap 12 7 - 15 mEq/L Comment: Starting from October , anion gap calculation no longer incorporates potassium. Please note the change. BUN 15 8 - 23 mg/dL Creatinine 0.6 0.5 - 0.9 mg/dL Glucose 101 (H) 65 - 99 mg/dL Calcium 9.4 8.8 - 10.2 mg/dL Protein 6.6 6.3 - 8.3 g/dL Comment: 4.6-7.0 g/dL 1 week 4.4-7.6 g/dL 7 months-1year 5.1-7.3 g/dL 1-2 years 5.6-7.5 g/dL >3 years 6.0-8.0 g/dL 18-150 6.3-8.3 g/dL Albumin 3.6 3.5 - 5.0 g/dL A/G ratio 1.2 0.7 - 3.8 Alkaline phosphatase 53 35 - 104 U/L AST 21 10 - 35 U/L ALT 26 5 - 50 U/L Total bilirubin 0.3 0.0 - 1.2 mg/dL Specimen Performing Laboratory Plasma specimen [facility] DEPARTMENT OF PATHOLOGY AND GENOMIC MEDICINE [address] [place] [address] * XR Chest 1 Vw Portable (10/08/2017 4:44 PM) Specimen Performing [facility] [address] [place] [address] Narrative EXAMINATION:XR CHEST 1 VW PORTABLE CLINICAL HISTORY:altered mental status COMPARISON:05/02/2017 IMPRESSION: No significant change since the previous examination. Lungs are hypoinflated. Minimal atelectasis left costophrenic angle. No definite infiltrate, consolidation, pleural effusion or pneumothorax. Mildly prominent cardiac mediastinal silhouette, unchanged. Osseous degenerative changes. [facility]-[id number] Procedure Note Interface, Radiology Results Incoming - 10/08/2017 4:48 PM CDT EXAMINATION: XR CHEST 1 VW PORTABLE CLINICAL HISTORY: altered mental status COMPARISON: 05/02/2017 IMPRESSION: No significant change since the previous examination. Lungs are hypoinflated. Minimal atelectasis left costophrenic angle. No definite infiltrate, consolidation, pleural effusion or pneumothorax. Mildly prominent cardiac mediastinal silhouette, unchanged. Osseous degenerative changes. [id number] * ECG 12 lead (10/08/2017 4:41 PM) Only the most recent of 2 results within the time period is included. Component Value Ref Range Ventricular rate 69 Atrial rate 69 CA interval 130 QRSD interval 74 QT interval 348 QTC interval 372 P axis 1 35 QRS axis 1 -27 T wave axis 8 EKG impression ^^^ Poor data quality, interpretation may be adversely affected-Normal sinus rhythm-Minimal voltage criteria for LVH, may be normal variant-Poor R wave progression-Nonspecific ST and T wave abnormality-Abnormal ECG-In automated comparison with ECG of 19-APR-2017 07:30,-Vent. rate has decreased BY 58 BPM-Nonspecific T wave abnormality now evident in Inferior leads-T wave inversion less evident in Anterolateral leads- Specimen Performing Laboratory [facility] [address] [place] [address] * ECG ED Preliminary Interpretation - NOT AN ORDER (10/08/2017 4:06 PM) Narrative Yasmany Avalos MD 10/08/2017 11:19 PM ECG ED Preliminary Interpretation - Not an Order Performed by: YASMANY AVALOS Authorized by: YASMANY AVALOS ECG reviewed by ED Physician in the absence of a director dermatology: yes Interpretation: Interpretation: abnormal Rate: ECG rate:69 ECG rate assessment: normal Rhythm: Rhythm: sinus rhythm Comments: [employer] * MRI Head External Study (10/07/2017 10:41 PM) Only the most recent of 2 results within the time period is included. Specimen Performing Laboratory [facility] [address] [place] [address] Narrative This exam was not acquired at a Religion facility and has not been interpreted by a Religion Provider.The exam was imported into our imaging system for comparisons purposes. * CT Head External Study (09/19/2017 10:59 AM) Only the most recent of 4 results within the time period is included. Specimen Performing Laboratory [facility] [address] [place] [address] Narrative This exam was not acquired at a Religion facility and has not been interpreted by a Religion Provider.The exam was imported into our imaging system for comparisons purposes. * ANCA SCREEN WITH REFLEX TO ANCA TITER (07/19/2017 11:59 AM) Component Value Ref Range ANCA screen NEGATIVE NEGATIVE Comment: ANCA Screen includes evaluation for p-ANCA, c-ANCA and atypical p-ANCA. A positive ANCA screen reflexes to titer and pattern(s), e.g., cytoplasmic pattern (c-ANCA), perinuclear pattern (p-ANCA), or atypical p-ANCA pattern. c-ANCA and p-ANCA are observed in vasculitis, whereas atypical p-ANCA is observed in IBD (Inflammatory Bowel Disease). Atypical p-ANCA is detected in about 55% to 80% of patients with ulcerative colitis but only 5% to 25% of patients with Crohn's disease. P-ANCA titer TNP titer Comment: Test Not Performed. Reflex testing not required. C-ANCA titer TNP titer Comment: Test Not Performed. Reflex testing not required. Atypical P-ANCA titer TNP titer Comment: Test Not Performed. Reflex testing not required. Specimen Performing Laboratory [facility] Narrative FASTING:NO FASTING: NO * XR Abd/Pelvic External Study (05/24/2017 9:24 AM) Specimen Performing Laboratory [facility] [address] [place] [address] Narrative This exam was not acquired at a Religion facility and has not been interpreted by a Religion Provider.The exam was imported into our imaging system for comparisons purposes. * XR Chest 2 Vw (05/02/2017 3:05 PM) Specimen Performing Laboratory [facility] [address] [place] [address] Narrative EXAMINATION:XR CHEST 2 VW CLINICAL HISTORY:R10.84 Generalized abdominal pain, R05 Cough, r10.84 COMPARISON:To previous examination from 03/21/2015 IMPRESSION: Left cardiophrenic angle blunting is unchanged. The heart is prominent and the lungs are clear. [facility]-[id number] Procedure Note Interface, Radiology Results Incoming - 05/02/2017 3:10 PM CDT EXAMINATION: XR CHEST 2 VW CLINICAL HISTORY: R10.84 Generalized abdominal pain, R05 Cough, r10.84 COMPARISON: To previous examination from 03/21/2015 IMPRESSION: Left cardiophrenic angle blunting is unchanged. The heart is prominent and the lungs are clear. [facility]-[id number] * SS-B antibody (04/24/2017 3:38 PM) Component Value Ref Range Sjogren's SS-B antibody <0.2 0.0 - 0.9 AI Comment: SS-B is less sensitive than SS-A for Sjogren's syndrome, but is more specific and is useful in distinguishing SLE from Sjogren's. SS-A should beordered separately if clinically warranted. Specimen Performing Laboratory Serum [facility] DEPARTMENT PATHOLOGY AND [address] [address] * SS-A antibody (04/24/2017 3:38 PM) Component Value Ref Range Sjogren's SS-A antibody <0.2 0.0 - 0.9 AI Comment: SS-A is sensitive for Sjogren's syndrome, but may also be positive with SLE(up to 30% of SLE patients are positive for SS-A). SS-B is less sensitive, but is useful in distinguishing SLE from Sjogren's, and should be ordered if clinically warranted Specimen Performing Laboratory Serum [facility] PATHOLOGY [address] [address] * Dianne-1 antibody (04/24/2017 3:38 PM) Component Value Ref Range Dianne-1 antibody <0.2 0.0 - 0.9 AI Comment: Antibodies to SS-A should also be ordered separately, as myositis frequently occurs in overlap with other connective tissue diseases. SS-A should be included to catch cases of concomitant SLE and Sjogren's syndrome. Specimen Performing Laboratory Serum [facility] DEPARTMENT OF PATHOLOGY AND [address] [address] * Protease-3 (04/24/2017 3:38 PM) Component Value Ref Range CA-3 (protease) <20 0 - 20 Units Comment: Negative: 0 - 20 UNITS Weak Positive: 21 - 30 UNITS Moderate to Strong Positive: > 30 UNITS CA-3 (protease) interp Negative Negative Specimen Performing Laboratory Blood [facility] DEPARTMENT OF PATHOLOGY AND [place] [id number] * TB T-SPOT (04/24/2017 3:38 PM) Component Value Ref Range TB T-SPOT SEE NOTE Comment: T-SPOT TUBERCULOSIS Nil Control: 0 Panel A: 0 Panel B: 0 Positive Control: TMTC Result: NEGATIVE NOTE: TMTC INDICATES TOO MANY SPOTS TO COUNT SAT INDICATES THE WELL WAS SATURATED RESULTS INTERPRETATION: RESULTS ARE NEGATIVE WHEN (PANEL A-NIL) OR (PANEL B-NIL) <=4 SPOTS, INCLUDING VALUES LESS THAN ZERO. RESULTS ARE POSITIVE WHEN (PANEL A-NIL) OR (PANEL B-NIL) >=8 SPOTS RESULTS ARE BORDERELINE WHEN EITHER (PANEL A-NIL) OR (PANEL B-NIL)=5,6,0R 7. THE TEST IS INVALID WHEN EITHER OF THE FOLLOWING CONDITIONS IS MET: 1.) THE NIL CONTROL HAS >10 SPOTS 2.) THE MITOGEN (POSITIVE CONTROL) HAS <20 SPOTS AND BOTH (PANEL A-NIL) AND (PANEL B-NIL) <=4 SPOTS. M. TUBERCULOSIS INFECTION UNLIKELY, BUT CANNOT BE EXCLUDED ESPECIALLY WHEN: 1. ANY ILLNESS IS CONSISTENT WITH TB DISEASE. 2. LIKELIHOOD OF PROGRESSION TO DISEASE (e.g. DUE TO IMMUNOSUPPRESSION) IS INCREASED. LIMITATIONS: DIAGNOSING OR EXCLUDING TUBERCULOSIS DISEASE, AND ASSESSING THE PROBABILITY OF LTBI, REQUIRES A COMBINATION OF EPIDEMIOLOGICAL, HISTORICAL, MEDICAL, AND DIAGNOSTIC FINDINGS THAT SHOULD BE TAKEN INTO ACCOUNT WHEN INTERPRETING T-SPOT.TB REFER TO THE MOST RECENT CDC GUIDANCE (HTTP: //WWW.CDC.GOV/NCHSTP/TB) FOR DETAILED RECOMMENDATIONS ABOUT DIAGNOSING TB INFECTION (INCLUDING DISEASE) AND SELECTING PERSONS FOR TESTING. 1.) A FALSE NEGATIVE RESULT CAN BE CAUSED BY INCORRECT BLOOD SAMPLE COLLECTION OR IMPROPER HANDLING OF THE SPECIMEN, AFFECTING LYMPHOCYTE FUNCTION 2.) THE PERFORMANCE OF T-SPOT.TB HAS NOT BEEN ADEQUATELY EVALUATED WITH SPECIMENS FROM INDIVIDUALS YOUNGER THAN AGE 17 YEARS, IN WOMEN, AND IN PATIENTS WITH HEMOPHILIA. 3-) A FALSE POSITIVE RESULT WAS OBTAINED FOR T-SPOT.TB WHEN TESTED IN SUBJECTS WITH M. XENOPI, M. KANSASII, AND M. GORDONAE. WHILE ESAT-6 AND CFP-10 ANTIGENS ARE ABSENT FROM BCG STRAINS OF M. BOVIS AND FROM MOST ENVIRONMENTAL MYCOBACTERIA, IT IS POSSIBLE THAT A POSITIVE T-SPOT.TB RESULT MAY BE DUE TO INFECTION WITH M. KANSASII, M. SZULGAI, M. GORDONAE, OR M. MARINUM. ALTERNATIVE TESTS WOULD BE REQUIRED IF THESE INFECTIONS ARE SUSPECTED. 4.) A NEGATIVE TEST RESULT DOES NOT EXCLUDE THE POSSIBILITY OF EXPOSURE TO, OR INFECTION WITH, M. TUBERCULOSIS. PATIENTS WITH RECENT EXPOSURE TO TB INFECTED INDIVIDUALS EXHIBITING A NEGATIVE T-SPOT.TB RESULT SHOULD BE CONSIDERED FOR RETESTING WITHIN 6 WEEKS OR IF OTHER RELEVANT CLINICAL SYMPTOMS INDICATE POSSIBLE INFECTION. 5.) A POSITIVE TEST RESULT DOES NOT RULE IN ACTIVE TB DISEASE; OTHER TESTS SHOULD BE PERFORMED TO CONFIRM THE DIAGNOSIS OF ACTIVE TB DISEASE SUCH SPUTUM SMEAR AND CULTURE, PCR AND CHEST RADIOGRAPHY. 6.) T-SPOT.TB TEST HAS NOT BEEN EVALUATED IN SUBJECTS WHO HAVE RECEIVED >1 MONTH OF ANTI-TB THERAPY. 7. ) REFRIGERATED AND FROZEN SAMPLES ARE NOT RECOMMENDED FOR USE WITH T=SPOT.TB TEST. Performed by: [facility] Molecular Tuberculosis Laboratory [facility] ([id number]) [place] [address] Specimen Performing Laboratory Blood [facility] [address] [place] [address] * MPO (myeloperoxidase) (04/24/2017 3:38 PM) Component Value Ref Range MPO (myeloperoxidase) <20 0 - 20 Units Comment: Negative: 0 - 20 units Weak Positive: 21 - 30 units Moderate to Strong: > 30 units MPO (myeloperoxidase) Negative Negative interp Specimen Performing Laboratory Blood [facility] DEPARTMENT OF PATHOLOGY AND GENOMIC MEDICINE [address] [place] [address] * DNA Ab screen (04/24/2017 3:38 PM) Component Value Ref Range DNA Ab screen Not Detected Not-Detected Specimen Performing Laboratory Blood [facility] DEPARTMENT [place] [address] * Cryo, globulin and fibrinogen (04/24/2017 3:38 PM) Component Value Ref Range Cryoglobulin Negative Negative Cryocrit globulin 0.0 Negative % Cryofibrinogen Positive (A) Negative Cryocrit fibrinogen 1.0 Negative % Specimen Performing Laboratory Blood [facility] DEPARTMENT OF PATHOLOGY AND [facility]ICINE [address] [place] [address] * Hepatitis C antibody (04/24/2017 3:38 PM) Component Value Ref Range Hepatitis C Ab Non-reactive Non-reactive Specimen Performing Laboratory Blood [facility] [place] [address] * Hepatitis B core antibody IgM (04/24/2017 3:38 PM) Component Value Ref Range Hepatitis B core IgM Non-reactive Non-reactive Specimen Performing Laboratory Blood [facility] DEPARTMENT OF PATHOLOGY AND GENOMIC MEDICINE [address] [place] [address] * Hepatitis B surface antigen (04/24/2017 3:38 PM) Component Value Ref Range Hepatitis B surface Ag Non-reactive Non-reactive Specimen Performing Laboratory Blood [facility] [place] [address] * Cardiolipin antibodies (04/24/2017 3:38 PM) Component Value Ref Range Cardiolipin IgG 3 0 - 14 GPL Comment: Negative=<15 GPL Indeterminate=15-20 GPL Positive=>20 GPL Cardiolipin IgM 7 0 - 12 MPL Comment: Negative=<13 MPL Indeterminate=13-20 MPL Positive=>20 MPL Specimen Performing Laboratory Blood [facility] DEPARTMENT OF PATHOLOGY AND [address] [address] * Phosphorus level (04/20/2017 4:00 AM) Only the most recent of 2 results within the time period is included. Component Value Ref Range Phosphorus 2.6 2.4 - 4.5 mg/dL Specimen Performing Laboratory Plasma specimen [facility] [place] [address] * Magnesium level (04/20/2017 4:00 AM) Only the most recent of 2 results within the time period is included. Component Value Ref Range Magnesium 2.1 1.6 - 2.4 mg/dL Specimen Performing Laboratory Plasma specimen [facility] [place] [address] * Hepatic function panel (04/20/2017 4:00 AM) Only the most recent of 2 results within the time period is included. Component Value Ref Range Albumin 1.8 (L) 3.5 - 5.0 g/dL Total bilirubin <0.2 0.0 - 1.2 mg/dL Bilirubin direct <0.2 0.0 - 0.3 mg/dL Alkaline phosphatase 58 35 - 104 U/L Protein 5.4 (L) 6.3 - 8.3 g/dL Comment: [place] 4.6-7.0 g/dL 1 week 4.4-7.6 g/dL 7 months-1year 5.1-7.3 g/dL 1-2 years 5.6-7.5 g/dL >3 years 6.0-8.0 g/dL 18-150 6.3-8.3 g/dL ALT 10 5 - 50 U/L AST 20 10 - 35 U/L Specimen Performing Laboratory Plasma specimen [facility] DEPARTMENT PATHOLOGY AND [address] [address] * Basic metabolic panel (04/20/2017 4:00 AM) Only the most recent of 2 results within the time period is included. Component Value Ref Range Sodium 143 135 - 148 mEq/L Potassium 3.9 3.5 - 5.0 mEq/L Chloride 108 98 - 112 mEq/L CO2 21 (L) 24 - 31 mEq/L Anion gap 14 7 - 15 mEq/L Comment: Starting from October , anion gap calculation no longer incorporates potassium. Please note the change. BUN 8 8 - 23 mg/dL Creatinine 0.7 0.5 - 0.9 mg/dL Glucose 100 (H) 65 - 99 mg/dL Calcium 8.1 (L) 8.8 - 10.2 mg/dL Specimen Performing Laboratory Plasma specimen [facility] DEPARTMENT OF PATHOLOGY AND GENOMIC MEDICINE [address] [place] [address] * Surgical pathology request (04/19/2017 11:42 AM) Only the most recent of 2 results within the time period is included. Component Value Ref Range Surgical pathology report See link below for PDF Lab Report Specimen Performing Laboratory [facility] [place] [address] * Cytology (non-gynecological) request (04/19/2017 9:46 AM) Only the most recent of 2 results within the time period is included. Component Value Ref Range Cytology See link below for PDF Lab Report (non-gynecological) report Specimen Performing Laboratory [facility] DEPARTMENT OF PATHOLOGY AND GENOMIC MEDICINE [address] [place] [address] * Hemoglobin, syringe (04/19/2017 9:26 AM) Component Value Ref Range Hemoglobin, syringe 8.6 (L) 12.0 - 16.0 g/dL Specimen Performing Laboratory Blood [facility] [place] [address] * Aerobic culture (04/19/2017 8:55 AM) Component Value Ref Range Aerobic culture isolate No growth after 3 days. Comment: Specimen Information Specimen Source: Biopsy Specimen Site: Omental biopsy Specimen Performing Laboratory Tissue - Other [facility] DEPARTMENT OF PATHOLOGY AND GENOMIC MEDICINE [address] [place] [address] * AFB stain (04/19/2017 8:55 AM) Component Value Ref Range AFB stain No acid fast bacilli (AFB) seen. Comment: Specimen Information Specimen Source: Biopsy Specimen Site: Omental biopsy Specimen Performing Laboratory Biopsy [facility] DEPARTMENT OF PATHOLOGY [facility] MEDICINE [address] [place] [address] * Anaerobic culture (04/19/2017 8:55 AM) Component Value Ref Range Anaerobic culture isolate No anaerobic organisms isolated. Comment: Specimen Information Specimen Source: Biopsy Specimen Site: Omental biopsy Specimen Performing Laboratory Tissue - Other [facility] DEPARTMENT OF PATHOLOGY AND GENOMIC MEDICINE [address] [place] [address] * Cell count and differential, body fluid (04/19/2017 8:55 AM) Only the most recent of 2 results within the time period is included. Component Value Ref Range Misc fluid type FootnoteComment: BIOPSY FLUID Color, fluid [place] Appearance, fluid Slightly hazy RBC, fluid SEE COMMENTComment: 2+ (500 - 10,000 RBC/CMM) /CMM Nucleated cells, fluid 337 /CMM Fluid mononuclear cell See Diff Neutrophils, fluid 18 % Lymphocytes, fluid 6 % Eosinophils, fluid 72 % Macrophages, fluid 4 % Specimen Performing Laboratory Fluid [facility] DEPARTMENT OF PATHOLOGY AND [facility]INE [address] [place] [address] Narrative LAPAROSCOPIC EXPLORATORY LAPAROTMY AND OMENTAL BIOPSY * [facility], [facility] (04/19/2017 8:55 AM) Only the most recent of 2 results within the time period is included. Component Value Ref Range Fluid type Footnote Protein, fluid 4.4 g/dL Comment: Analysis performed on Ruddy 8000 analyzer. This is not an approved methodology for this specimen type; accuracy and clinical significance uncertain. Specimen Performing Laboratory Fluid [facility] DEPARTMENT OF PATHOLOGY AND GENOMIC MEDICINE [address] [place] [address] Narrative LAPAROSCOPIC EXPLORATORY LAPAROTMY AND OMENTAL BIOPSY * LDH, [facility] fluid (04/19/2017 8:55 AM) Component Value Ref Range Fluid type Footnote LDH, fluid 157 U/L Comment: Analysis performed on Ruddy 8000 analyzer. This is not an approved methodology for this specimen type; accuracy and clinical significance uncertain. Specimen Performing Laboratory Fluid [facility] DEPARTMENT OF PATHOLOGY AND [facility]ICINE [address] [place] [address] Narrative LAPAROSCOPIC EXPLORATORY LAPAROTMY AND OMENTAL BIOPSY * Glucose level, misc fluid (04/19/2017 8:55 AM) Component Value Ref Range Fluid type Footnote Glucose, fluid 102 mg/dL Comment: Analysis performed on Ruddy 8000 analyzer. This is not an approved methodology for this specimen type; accuracy and clinical significance uncertain. Specimen Performing Laboratory Fluid [facility] DEPARTMENT [place] [address] Narrative LAPAROSCOPIC EXPLORATORY LAPAROTMY AND OMENTAL BIOPSY * ECG Pre/Post Op (04/16/2017 4:45 PM) Component Value Ref Range Ventricular rate 80 Atrial rate 80 CA interval 158 QRSD interval 82 QT interval 360 QTC interval 415 P axis 1 47 QRS axis 1 -6 T wave axis 6 EKG impression Normal sinus rhythm-Normal ECG-No previous ECGs available- Specimen Performing Laboratory [facility] M[facility] [address] [place] [address] * Type and screen (04/16/2017 4:26 PM) Component Value Ref Range ABO grouping B Rh type NEG Antibody screen (gel) NEG Specimen Performing Laboratory Blood [facility] DEPARTMENT OF PATHOLOGY AND [facility]INE [address] [place] [address] * Cancer antigen 125 (04/16/2017 4:26 PM) Component Value Ref Range CA 125 21 0 - 35 U/mL Comment: The Angelica Ruddy 8000 CA125 immunoassay was used. Results obtained with different assay methods or kits should not be used interchangeably and may be different. Specimen Performing Laboratory Plasma specimen [facility] DEPARTMENT [place] [address] * Carcinoembryonic antigen (CEA) (04/16/2017 4:26 PM) Component Value Ref Range CEA 1.9 0.0 - 3.8 ng/mL Comment: Reference range for heavy smokers: 0.0 - 5.5 ng/mL The ANGELICA Ruddy 8000 CEA immunoassay was used. Results obtained with different assay methods or kits should not be used interchangeably and may be different. Specimen Performing Laboratory Serum [facility] DEPARTMENT OF PATHOLOGY AND [facility] [address] [place] [address] * Smear review (04/16/2017 2:16 PM) Component Value Ref Range Platelet slide review Jn slt incr Specimen Performing Laboratory [facility] DEPARTMENT OF PATHOLOGY AND [facility]ICINE [address] [place] [address] * US Abdominal Paracentesis Imaging (04/05/2017 2:45 PM) Specimen Performing Laboratory [facility] [facility] [address] [place] [address] Narrative Procedure:US ABDOMINAL PARACENTESIS IMAGING History:R18.8 Other ascites, ascites PROCEDURE: After the risks, benefits, and alternatives to procedure discussed, informed consent was obtained, signed, and placed in the chart. A timeout was performed to verify the patient's identity and the post procedure. The left lower quadrant of the abdomen was prepped and draped in a sterile manner. 1% lidocaine was given for local anesthesia. Under ultrasound guidance, a Yueh catheter was advanced into the Ascites. Approximately 1.05 L of Clear yellow fluid was aspirated. The catheter was then removed and gentle pressure was applied to the puncture site. The patient tolerated the procedure well without any immediate complications. IMPRESSION: Ultrasound-guided paracentesis. Approximately 1.05 L of clear yellow fluid was removed. [facility]-[id number] Procedure Note [facility], Radiology Results Incoming - 04/05/2017 3:45 PM CDT Procedure:US ABDOMINAL PARACENTESIS IMAGING History:R18.8 Other ascites, ascites PROCEDURE: After the risks, benefits, and alternatives to procedure discussed, informed consent was obtained, signed, and placed in the chart. A timeout was performed to verify the patient's identity and the post procedure. The left lower quadrant of the abdomen was prepped and draped in a sterile manner. 1% lidocaine was given for local anesthesia. Under ultrasound guidance, a Yueh catheter was advanced into the Ascites. Approximately 1.05 L of Clear yellow fluid was aspirated. The catheter was then removed and gentle pressure was applied to the puncture site. The patient tolerated the procedure well without any immediate complications. IMPRESSION: Ultrasound-guided paracentesis. Approximately 1.05 L of clear yellow fluid was removed. [facility]-[id number] * Albumin, misc fluid (04/05/2017 2:30 PM) Component Value Ref Range Fluid type Peritoneal Albumin, fluid 2.5 g/dL Comment: Analysis performed on Ruddy 8000 analyzer. This is not an approved methodology for this specimen type; accuracy and clinical significance uncertain. Specimen Performing Laboratory Fluid [facility] DEPARTMENT OF PATHOLOGY AND GENOMIC MEDICINE [address] [place] [id number] Narrative peritoneal fluid * CBC hemogram (03/28/2017 1:35 PM) Component Value Ref Range WBC 5.54 4.50 - 11.00 k/uL RBC 4.70 4.20 - 5.50 m/uL HGB 14.4 12.0 - 16.0 g/dL HCT 45.4 37.0 - 47.0 % MCV 96.6 82.0 - 100.0 fL MCH 30.6 27.0 - 34.0 pg MCHC 31.7 31.0 - 37.0 g/dL RDW - SD 40.9 37.0 - 55.0 fL MPV 9.9 8.8 - 13.2 fL Platelet count 327 150 - 400 k/uL Nucleated RBC 0.00 /100 WBC Specimen Performing Laboratory Blood [facility] DEPARTMENT OF PATHOLOGY AND GENOMIC MEDICINE [address] [place] [id number] * CT Abd/Pelvic External Study (03/27/2017 4:59 PM) Specimen Performing Laboratory [facility] [address] [place] [id number] Narrative This exam was not acquired at a [facility] facility and has not been interpreted by a [facility] Provider.The exam was imported into our imaging system for comparisons purposes. after 11/28/2016 Insurance Payer Benefit Subscriber ID Type Phone Address Plan / Group HU[employer]NA MEDICARE HUMANA xxxxxxxxx PPO MEDICARE PPO/PFFS/E [facility] [place] [address]
--- OUTSIDE RECORDS SUMMARY | 2017-11-29 15:34 | XMS REPORT ---
Author Author [facility] Address Unknown Phone Unavailable Care Team Providers Care Bag Sewer Name Role Phone ALESSANDRO PAPPAS Unavailable Unavailable VOLODYMYR LUCAS Unavailable Unavailable TIANA SMITH Unavailable Unavailable DESTINEE URIBE Unavailable Unavailable Problems This patient has no known problems. Allergies, Adverse Reactions, Alerts This patient has no known allergies or adverse reactions. Medications This patient has no known medications. Results Test Description Test Time Test Comments Text Results Atomic Results Result Comments BASIC METABOLIC PANEL 2017 09:19:00 SODIUM (BEAKER) (test svfp=182) 138 meq/L 136-145 POTASSIUM (BEAKER) (test ruta=677) 4.6 meq/L 3.5-5.1 CHLORIDE (BEAKER) (test oxxt=351) 110 meq/L 98-107 CO2 (BEAKER) (test uzvs=727) 19 meq/L 22-29 BLOOD UREA NITROGEN (BEAKER) (test ilyv=828) 17 mg/dL 7-21 CREATININE (BEAKER) (test fsdz=943) 0.74 mg/dL 0.57-1.25 GLUCOSE RANDOM (BEAKER) (test jevi=358) 81 mg/dL 70-105 CALCIUM (BEAKER) (test saey=236) 9.3 mg/dL 8.4-10.2 EGFR (BEAKER) (test xkjx=1205) 78 mL/min/1.73 sq m ESTIMATED GFR IS NOT ACCURATE CREATININE CLEARANCE IN PREDICTING GLOMERULAR FILTRATION RATE. ESTIMATED GFR IS NOT APPLICABLE FOR DIALYSIS PATIENTS. CBC (HEMOGRAM ONLY)2017 07:05:00* Test Item Value Reference Range Comments WHITE BLOOD CELL COUNT (BEAKER) (test isoi=193) 8.0 K/ L 3.5-10.5 RED BLOOD CELL COUNT (BEAKER) (test cbgl=125) 4.54 M/ L 3.93-5.22 HEMOGLOBIN (BEAKER) (test ggye=973) 14.0 GM/DL 11.2-15.7 HEMATOCRIT (BEAKER) (test zfwr=393) 44.8 % 34.1-44.9 MEAN CORPUSCULAR VOLUME (BEAKER) (test drte=889) 98.7 fL 79.4-94.8 MEAN CORPUSCULAR HEMOGLOBIN (BEAKER) (test dipy=020) 30.8 pg 25.6-32.2 MEAN CORPUSCULAR HEMOGLOBIN CONC (BEAKER) (test kchp=376) 31.3 GM/DL 32.2- 35.5 RED CELL DISTRIBUTION WIDTH (BEAKER) (test zruw=207) 16.0 % 11.7-14.4 PLATELET COUNT (BEAKER) (test inse=995) 189 K/CU MM 150-450 MEAN PLATELET VOLUME (BEAKER) (test vmnc=095) 9.8 fL 9.4-12.3 NUCLEATED RED BLOOD CELLS (BEAKER) (test pwvm=063) 0 /100 WBC 0-0 URINE [id number] 15:33:00* Test Item Value Reference Range Comments CULTURE (BEAKER) (test funa=2238) Amikacin (test code=1) Ampicillin + Sulbactam (test code=6) Aztreonam (test code=32) Cefepime (test code=51) Cefoxitin (test code=68) Ceftazidime (test code=27) Ceftriaxone (test code=52) Ertapenem (test code=38) Gentamicin (test code=18) Levofloxacin (test code=22) Meropenem (test code=34) Nitrofurantoin (test code=23) Piperacillin + Tazobactam (test code=29) Tetracycline (test code=2) Tobramycin (test code=25) Trimethoprim + Sulfamethoxazole (test code=47) CULTURE (BEAKER) (test ixie=0795) >100,000 col/mL Klebsiella pneumoniae BASIC METABOLIC [id number] 13:21:00* Test Item Value Reference Range Comments SODIUM (BEAKER) (test asde=383) 139 meq/L 136-145 POTASSIUM (BEAKER) (test ozog=303) 4.3 meq/L 3.5-5.1 Specimen slightly hemolyzed CHLORIDE (BEAKER) (test ncgp=285) 107 meq/L 98-107 CO2 (BEAKER) (test repj=477) 23 meq/L 22-29 BLOOD UREA NITROGEN (BEAKER) (test vxgr=400) 15 mg/dL 7-21 CREATININE (BEAKER) (test lviz=711) 0.60 mg/dL 0.57-1.25 Specimen slightly hemolyzed GLUCOSE RANDOM (BEAKER) (test eorp=155) 99 mg/dL 70-105 CALCIUM (BEAKER) (test asmt=400) 9.1 mg/dL 8.4-10.2 EGFR (BEAKER) (test bbuy=3005) 99 mL/min/1.73 sq m ESTIMATED GFR IS NOT ACCURATE CREATININE CLEARANCE IN PREDICTING GLOMERULAR FILTRATION RATE. ESTIMATED GFR IS NOT APPLICABLE FOR DIALYSIS PATIENTS. PLATELET [id number] 12:32:00* Test Item Value Reference Range Comments PLATELET COUNT (BEAKER) (test nxdg=182) 184 K/CU MM 150-450 COMPREHENSIVE METABOLIC [id number] 06:23:00* Test Item Value Reference Range Comments TOTAL PROTEIN (BEAKER) (test nixo=001) 7.3 gm/dL 6.0-8.3 Specimen markedly hemolyzed ALBUMIN (BEAKER) (test bche=5015) 3.4 g/dL 3.5-5.0 Specimen markedly hemolyzed ALKALINE PHOSPHATASE (BEAKER) (test cdbg=375) 48 U/L 40-150 BILIRUBIN TOTAL (BEAKER) (test uvht=838) 0.3 mg/dL 0.2-1.2 Specimen markedly hemolyzed SODIUM (BEAKER) (test mimq=783) 135 meq/L 136-145 POTASSIUM (BEAKER) (test vfsp=797) 5.4 meq/L 3.5-5.1 Specimen markedly hemolyzed CHLORIDE (BEAKER) (test qqrg=438) 107 meq/L 98-107 CO2 (BEAKER) (test vqny=463) 15 meq/L 22-29 BLOOD UREA NITROGEN (BEAKER) (test mvpl=917) 14 mg/dL 7-21 CREATININE (BEAKER) (test eaih=284) 0.67 mg/dL 0.57-1.25 Specimen markedly hemolyzed GLUCOSE RANDOM (BEAKER) (test vqjw=646) 66 mg/dL 70-105 CALCIUM (BEAKER) (test thvb=833) 9.4 mg/dL 8.4-10.2 AST (SGOT) (BEAKER) (test kzie=957) 30 U/L 5-34 Specimen markedly hemolyzed ALT (SGPT) (BEAKER) (test lfmj=240) 31 U/L 6-55 Specimen markedly hemolyzed EGFR (BEAKER) (test maag=5020) 88 mL/min/1.73 sq m ESTIMATED GFR IS NOT ACCURATE CREATININE CLEARANCE IN PREDICTING GLOMERULAR FILTRATION RATE. ESTIMATED GFR IS NOT APPLICABLE FOR DIALYSIS PATIENTS. CBC W/PLT COUNT & AUTO [id number] 05:44:00* Test Item Value Reference Range Comments WHITE BLOOD CELL COUNT (BEAKER) (test wshj=278) 7.1 K/ L 3.5-10.5 RED BLOOD CELL COUNT (BEAKER) (test vsva=394) 4.39 M/ L 3.93-5.22 HEMOGLOBIN (BEAKER) (test xdky=461) 13.7 GM/DL 11.2-15.7 HEMATOCRIT (BEAKER) (test chyt=300) 44.0 % 34.1-44.9 MEAN CORPUSCULAR VOLUME (BEAKER) (test jyor=216) 100.2 fL 79.4-94.8 MEAN CORPUSCULAR HEMOGLOBIN (BEAKER) (test seny=482) 31.2 pg 25.6-32.2 MEAN CORPUSCULAR HEMOGLOBIN CONC (BEAKER) (test fdpo=351) 31.1 GM/DL 32.2- 35.5 RED CELL DISTRIBUTION WIDTH (BEAKER) (test vlvr=058) 15.3 % 11.7-14.4 PLATELET COUNT (BEAKER) (test kzks=175) 43 K/CU MM 150-450 MEAN PLATELET VOLUME (BEAKER) (test hgyw=393) 11.5 fL 9.4-12.3 NUCLEATED RED BLOOD CELLS (BEAKER) (test opcd=222) 0 /100 WBC 0-0 NEUTROPHILS RELATIVE PERCENT (BEAKER) (test azov=615) 77 % LYMPHOCYTES RELATIVE PERCENT (BEAKER) (test tlkn=122) 14 % MONOCYTES RELATIVE PERCENT (BEAKER) (test inup=697) 7 % EOSINOPHILS RELATIVE PERCENT (BEAKER) (test nqov=416) 0 % BASOPHILS RELATIVE PERCENT (BEAKER) (test uyzr=806) 1 % NEUTROPHILS ABSOLUTE COUNT (BEAKER) (test qzlk=992) 5.51 K/ L 1.56-6.13 LYMPHOCYTES ABSOLUTE COUNT (BEAKER) (test ifjk=464) 0.99 K/ L 1.18-3.74 MONOCYTES ABSOLUTE COUNT (BEAKER) (test fxxa=068) 0.47 K/ L 0.24-0.36 EOSINOPHILS ABSOLUTE COUNT (BEAKER) (test kllc=833) 0.01 K/ L 0.04-0.36 BASOPHILS ABSOLUTE COUNT (BEAKER) (test hglr=300) 0.05 K/ L 0.01-0.08 IMMATURE GRANULOCYTES-RELATIVE PERCENT (BEAKER) (test ofzm=4484) 2 % 0-1 URINALYSIS W/ [id number] 22:13:00* Test Item Value Reference Range Comments COLOR (BEAKER) (test orqz=276) Yellow CLARITY (BEAKER) (test ljav=909) Hazy SPECIFIC GRAVITY UA (BEAKER) (test roxe=197) 1.018 1.001-1.035 PH UA (BEAKER) (test myur=526) 6.5 5.0-8.0 PROTEIN UA (BEAKER) (test vmvk=287) 10 mg/dL Negative GLUCOSE UA (BEAKER) (test ujtx=086) 100 mg/dL Negative KETONES UA (BEAKER) (test gygv=326) 10 mg/dL Negative BILIRUBIN UA (BEAKER) (test ufev=709) Negative Negative BLOOD UA (BEAKER) (test cdsh=367) Negative Negative NITRITE UA (BEAKER) (test lvpx=311) Positive Negative LEUKOCYTE ESTERASE UA (BEAKER) (test fixq=370) Moderate Negative UROBILINOGEN UA (BEAKER) (test pqco=449) 0.2 mg/dL 0.2-1.0 RBC UA (BEAKER) (test werl=669) 1 /HPF WBC UA (BEAKER) (test ljci=215) 27 /HPF BACTERIA (BEAKER) (test hrth=853) Few MUCUS (BEAKER) (test qdow=3331) Few SQUAMOUS EPITHELIAL (BEAKER) (test ardm=032) 9 /HPF SOURCE(BEAKER) (test utdm=3324) Urine, Clean Catch POCT-GLUCOSE [id number] 17:04:00* Test Item Value Reference Range Comments POC-GLUCOSE METER (BEAKER) (test thqx=3547) 131 mg/dL 70-110 TESTED AT [address] [address] POCT-GLUCOSE [id number] 12:31:00* Test Item Value Reference Range Comments POC-GLUCOSE METER (BEAKER) (test wovy=7320) 121 mg/dL 70-110 TESTED AT [address] [address] POCT-GLUCOSE [id number] 07:57:00* Test Item Value Reference Range Comments POC-GLUCOSE METER (BEAKER) (test fqkb=6211) 93 mg/dL 70-110 TESTED AT [address] [address] POCT-GLUCOSE [id number] 17:30:00* Test Item Value Reference Range Comments POC-GLUCOSE METER (BEAKER) (test zlwr=9566) 151 mg/dL 70-110 TESTED AT [address] [address] POCT-GLUCOSE [id number] 11:40:00* Test Item Value Reference Range Comments POC-GLUCOSE METER (BEAKER) (test axfg=8291) 117 mg/dL 70-110 TESTED AT [address] [address] POCT-GLUCOSE [id number] 07:58:00* Test Item Value Reference Range Comments POC-GLUCOSE METER (BEAKER) (test igpf=7384) 90 mg/dL 70-110 TESTED AT [address] [address] POCT-GLUCOSE [id number] 20:53:00* Test Item Value Reference Range Comments POC-GLUCOSE METER (BEAKER) (test yiye=2352) 148 mg/dL 70-110 TESTED AT [address] [address] POCT-GLUCOSE [id number] 16:40:00* Test Item Value Reference Range Comments POC-GLUCOSE METER (BEAKER) (test vilx=6950) 126 mg/dL 70-110 TESTED AT [address] [address] POCT-GLUCOSE [id number] 11:08:00* Test Item Value Reference Range Comments POC-GLUCOSE METER (BEAKER) (test eerh=8762) 123 mg/dL 70-110 TESTED AT [address] [address] POCT-GLUCOSE [id number] 08:06:00* Test Item Value Reference Range Comments POC-GLUCOSE METER (BEAKER) (test gfxv=5106) 103 mg/dL 70-110 TESTED AT [place] [id number] [facility] [address] POCT-GLUCOSE [id number] 21:11:00* Test Item Value Reference Range Comments POC-GLUCOSE METER (BEAKER) (test srfh=2894) 131 mg/dL 70-110 TESTED AT [address] [address] POCT-GLUCOSE [id number] 17:09:00* Test Item Value Reference Range Comments POC-GLUCOSE METER (BEAKER) (test posn=8596) 121 mg/dL 70-110 TESTED AT [address] [address] POCT-GLUCOSE [id number] 11:53:00* Test Item Value Reference Range Comments POC-GLUCOSE METER (BEAKER) (test uiqa=4799) 129 mg/dL 70-110 TESTED AT [address] [address] POCT-GLUCOSE [id number] 08:05:00* Test Item Value Reference Range Comments POC-GLUCOSE METER (BEAKER) (test xkxm=9816) 103 mg/dL 70-110 TESTED AT [address] [address] BASIC METABOLIC [id number] 05:39:00* Test Item Value Reference Range Comments SODIUM (BEAKER) (test dwxr=686) 141 meq/L 136-145 POTASSIUM (BEAKER) (test hdxz=869) 3.6 meq/L 3.5-5.1 CHLORIDE (BEAKER) (test cbzv=010) 109 meq/L 98-107 CO2 (BEAKER) (test trre=234) 25 meq/L 22-29 BLOOD UREA NITROGEN (BEAKER) (test rzcn=894) 14 mg/dL 7-21 CREATININE (BEAKER) (test hqrr=736) 0.57 mg/dL 0.57-1.25 GLUCOSE RANDOM (BEAKER) (test guri=780) 93 mg/dL 70-105 CALCIUM (BEAKER) (test jmgu=924) 8.7 mg/dL 8.4-10.2 EGFR (BEAKER) (test icfn=1252) 105 mL/min/1.73 sq m ESTIMATED GFR IS NOT ACCURATE CREATININE CLEARANCE IN PREDICTING GLOMERULAR FILTRATION RATE. ESTIMATED GFR IS NOT APPLICABLE FOR DIALYSIS PATIENTS. CBC (HEMOGRAM ONLY)2017-05-30 05:07:00* Test Item Value Reference Range Comments WHITE BLOOD CELL COUNT (BEAKER) (test ujce=575) 7.3 K/ L 3.5-10.5 RED BLOOD CELL COUNT (BEAKER) (test ywnp=334) 3.92 M/ L 3.93-5.22 HEMOGLOBIN (BEAKER) (test mdha=469) 12.2 GM/DL 11.2-15.7 HEMATOCRIT (BEAKER) (test yczh=132) 38.2 % 34.1-44.9 MEAN CORPUSCULAR VOLUME (BEAKER) (test klve=428) 97.4 fL 79.4-94.8 MEAN CORPUSCULAR HEMOGLOBIN (BEAKER) (test ikss=618) 31.1 pg 25.6-32.2 MEAN CORPUSCULAR HEMOGLOBIN CONC (BEAKER) (test hcds=802) 31.9 GM/DL 32.2- 35.5 RED CELL DISTRIBUTION WIDTH (BEAKER) (test hldh=439) 15.0 % 11.7-14.4 PLATELET COUNT (BEAKER) (test easb=089) 221 K/CU MM 150-450 MEAN PLATELET VOLUME (BEAKER) (test vzlq=397) 9.6 fL 9.4-12.3 NUCLEATED RED BLOOD CELLS (BEAKER) (test kccg=268) 0 /100 WBC 0-0 POCT-GLUCOSE [id number] 22:12:00* Test Item Value Reference Range Comments POC-GLUCOSE METER (BEAKER) (test vrty=9662) 114 mg/dL 70-110 TESTED AT [place] [id number] [facility] [address] POCT-GLUCOSE [id number] 17:00:00* Test Item Value Reference Range Comments POC-GLUCOSE METER (BEAKER) (test dhev=9948) 141 mg/dL 70-110 TESTED AT [address] [address] BASIC METABOLIC [id number] 16:12:00* Test Item Value Reference Range Comments SODIUM (BEAKER) (test ikaj=416) 137 meq/L 136-145 POTASSIUM (BEAKER) (test hral=035) 4.1 meq/L 3.5-5.1 CHLORIDE (BEAKER) (test zazv=658) 106 meq/L 98-107 CO2 (BEAKER) (test kpfp=863) 19 meq/L 22-29 BLOOD UREA NITROGEN (BEAKER) (test yrah=957) 17 mg/dL 7-21 CREATININE (BEAKER) (test vkls=593) 0.66 mg/dL 0.57-1.25 GLUCOSE RANDOM (BEAKER) (test kcqr=954) 184 mg/dL 70-105 CALCIUM (BEAKER) (test mdua=417) 9.1 mg/dL 8.4-10.2 EGFR (BEAKER) (test qjok=2337) 89 mL/min/1.73 sq m ESTIMATED GFR IS NOT ACCURATE CREATININE CLEARANCE IN PREDICTING GLOMERULAR FILTRATION RATE. ESTIMATED GFR IS NOT APPLICABLE FOR DIALYSIS PATIENTS. CBC (HEMOGRAM ONLY)2017-05-29 15:45:00* Test Item Value Reference Range Comments WHITE BLOOD CELL COUNT (BEAKER) (test apmf=595) 9.7 K/ L 3.5-10.5 RED BLOOD CELL COUNT (BEAKER) (test tnnh=386) 4.41 M/ L 3.93-5.22 HEMOGLOBIN (BEAKER) (test keby=587) 13.9 GM/DL 11.2-15.7 HEMATOCRIT (BEAKER) (test dsiy=074) 42.8 % 34.1-44.9 MEAN CORPUSCULAR VOLUME (BEAKER) (test rdvm=485) 97.1 fL 79.4-94.8 MEAN CORPUSCULAR HEMOGLOBIN (BEAKER) (test jszi=018) 31.5 pg 25.6-32.2 MEAN CORPUSCULAR HEMOGLOBIN CONC (BEAKER) (test nlar=112) 32.5 GM/DL 32.2- 35.5 RED CELL DISTRIBUTION WIDTH (BEAKER) (test qgny=154) 14.8 % 11.7-14.4 PLATELET COUNT (BEAKER) (test wkjw=086) 268 K/CU MM 150-450 MEAN PLATELET VOLUME (BEAKER) (test bxpw=097) 9.9 fL 9.4-12.3 NUCLEATED RED BLOOD CELLS (BEAKER) (test qnzq=929) 0 /100 WBC 0-0 POCT-GLUCOSE [id number] 11:43:00* Test Item Value Reference Range Comments POC-GLUCOSE METER (BEAKER) (test lusi=3212) 136 mg/dL 70-110 TESTED AT [place] [id number] [facility] [address] POCT-GLUCOSE [id number] 08:51:00* Test Item Value Reference Range Comments POC-GLUCOSE METER (BEAKER) (test psqz=8873) 103 mg/dL 70-110 TESTED AT [address] [address] POCT-GLUCOSE [id number] 22:05:00* Test Item Value Reference Range Comments POC-GLUCOSE METER (BEAKER) (test ctfi=2830) 118 mg/dL 70-110 TESTED AT [address] [address] BASIC METABOLIC [id number] 07:00:00* Test Item Value Reference Range Comments SODIUM (BEAKER) (test rvmj=696) 139 meq/L 136-145 POTASSIUM (BEAKER) (test djkq=378) 3.9 meq/L 3.5-5.1 Specimen slightly hemolyzed CHLORIDE (BEAKER) (test ycau=158) 110 meq/L 98-107 CO2 (BEAKER) (test cate=153) 23 meq/L 22-29 BLOOD UREA NITROGEN (BEAKER) (test sckh=259) 15 mg/dL 7-21 CREATININE (BEAKER) (test hljk=770) 0.60 mg/dL 0.57-1.25 Specimen slightly hemolyzed GLUCOSE RANDOM (BEAKER) (test spth=875) 91 mg/dL 70-105 CALCIUM (BEAKER) (test zisa=300) 8.3 mg/dL 8.4-10.2 EGFR (BEAKER) (test dzpo=7403) 99 mL/min/1.73 sq m ESTIMATED GFR IS NOT ACCURATE CREATININE CLEARANCE IN PREDICTING GLOMERULAR FILTRATION RATE. ESTIMATED GFR IS NOT APPLICABLE FOR DIALYSIS PATIENTS. POCT-GLUCOSE [id number] 05:31:00* Test Item Value Reference Range Comments POC-GLUCOSE METER (BEAKER) (test imwh=2707) 92 mg/dL 70-110 TESTED AT [place] [id number] CBC (HEMOGRAM ONLY)2017-05-28 03:29:00* Test Item Value Reference Range Comments WHITE BLOOD CELL COUNT (BEAKER) (test wlpv=363) 8.3 K/ L 3.5-10.5 RED BLOOD CELL COUNT (BEAKER) (test kiek=234) 3.95 M/ L 3.93-5.22 HEMOGLOBIN (BEAKER) (test jwtf=619) 12.0 GM/DL 11.2-15.7 HEMATOCRIT (BEAKER) (test xvnh=634) 39.0 % 34.1-44.9 MEAN CORPUSCULAR VOLUME (BEAKER) (test qwyf=856) 98.7 fL 79.4-94.8 MEAN CORPUSCULAR HEMOGLOBIN (BEAKER) (test giqs=565) 30.4 pg 25.6-32.2 MEAN CORPUSCULAR HEMOGLOBIN CONC (BEAKER) (test tlrl=768) 30.8 GM/DL 32.2- 35.5 RED CELL DISTRIBUTION WIDTH (BEAKER) (test yqqh=567) 14.9 % 11.7-14.4 PLATELET COUNT (BEAKER) (test lqzb=590) 223 K/CU MM 150-450 MEAN PLATELET VOLUME (BEAKER) (test mdpf=144) 9.6 fL 9.4-12.3 NUCLEATED RED BLOOD CELLS (BEAKER) (test gezz=461) 0 /100 WBC 0-0 POCT-GLUCOSE [id number] 18:58:00* Test Item Value Reference Range Comments POC-GLUCOSE METER (BEAKER) (test alig=2638) 142 mg/dL 70-110 TESTED AT [address] [address] [address] BRAIN WITHOUT IV CONTRAST - [id number] 16:00:00Reason for exam:-> intracranial bleedFINAL REPORT CT head without contrast 05/27/2017 3:57 PM CLINICAL HISTORY: intracranial bleed TECHNIQUE: Contiguous axial images through the head without contrast were obtained utilizing the portable CT unit. This examination was performed according to our departmental dose optimization program, which includes automated exposure control, adjustment of the mA and/or kV according to patient size, and/or use of iterated reconstruction technique. COMPARISON: 05/21/2017 FINDINGS: There has been continued resorption of intraventricular hemorrhage, which remains small volume. Left striatocapsular hemorrhage volume is stable, with increased ischemic and/or nonischemic edema in the adjacent corpus striatum and whitehead radiata. Mass effect is similar, with effacement of the left lateral ventricle in shallow rightward bowing of the septi pellucidi. There is no ventricular entrapment or parenchymal herniation. The paranasal sinuses and tympanomastoid cavities are well aerated. A right frontal approach external ventricular drain is unchanged in position. The skull is unremarkable. IMPRESSION:1. Since 2016, slight decrease in intraventricular hemorrhage volume.2. Stable left anterior striatocapsular intraparenchymal hemorrhage volume.3. Increased ischemic and/or nonischemic edema in the adjacent left corpus striatum and whitehead radiata.4. No hydrocephalus or concerning mass effect. Signed: Hermilo Holloway MDReport Verified Date/Time: 05/27/2017 16:00:54 Reading Location: [facility] Radiology Reading Room -GLUCOSE [id number] 12:11:00* Test Item Value Reference Range Comments POC-GLUCOSE METER (BEAKER) (test ferw=6419) 120 mg/dL 70-110 TESTED AT [address] [address] BASIC METABOLIC [id number] 04:00:00* Test Item Value Reference Range Comments SODIUM (BEAKER) (test nrnt=282) 139 meq/L 136-145 POTASSIUM (BEAKER) (test vsno=298) 3.9 meq/L 3.5-5.1 CHLORIDE (BEAKER) (test xump=771) 107 meq/L 98-107 CO2 (BEAKER) (test oufb=486) 25 meq/L 22-29 BLOOD UREA NITROGEN (BEAKER) (test hulg=228) 18 mg/dL 7-21 CREATININE (BEAKER) (test dljx=244) 0.58 mg/dL 0.57-1.25 GLUCOSE RANDOM (BEAKER) (test mrsf=324) 97 mg/dL 70-105 CALCIUM (BEAKER) (test zrbb=493) 8.7 mg/dL 8.4-10.2 EGFR (BEAKER) (test plzq=7087) 103 mL/min/1.73 sq m ESTIMATED GFR IS NOT ACCURATE CREATININE CLEARANCE IN PREDICTING GLOMERULAR FILTRATION RATE. ESTIMATED GFR IS NOT APPLICABLE FOR DIALYSIS PATIENTS. CBC W/PLT COUNT & AUTO [id number] 03:49:00* Test Item Value Reference Range Comments WHITE BLOOD CELL COUNT (BEAKER) (test olow=412) 8.2 K/ L 3.5-10.5 RED BLOOD CELL COUNT (BEAKER) (test gkbf=424) 4.11 M/ L 3.93-5.22 HEMOGLOBIN (BEAKER) (test btzw=683) 12.5 GM/DL 11.2-15.7 HEMATOCRIT (BEAKER) (test tgjq=265) 39.5 % 34.1-44.9 MEAN CORPUSCULAR VOLUME (BEAKER) (test mbmh=497) 96.1 fL 79.4-94.8 MEAN CORPUSCULAR HEMOGLOBIN (BEAKER) (test npis=507) 30.4 pg 25.6-32.2 MEAN CORPUSCULAR HEMOGLOBIN CONC (BEAKER) (test xszf=842) 31.6 GM/DL 32.2- 35.5 RED CELL DISTRIBUTION WIDTH (BEAKER) (test zbmo=363) 14.9 % 11.7-14.4 PLATELET COUNT (BEAKER) (test ljiw=771) 238 K/CU MM 150-450 MEAN PLATELET VOLUME (BEAKER) (test rqql=040) 9.5 fL 9.4-12.3 NUCLEATED RED BLOOD CELLS (BEAKER) (test ihar=494) 0 /100 WBC 0-0 NEUTROPHILS RELATIVE PERCENT (BEAKER) (test kmne=819) 81 % LYMPHOCYTES RELATIVE PERCENT (BEAKER) (test ntwa=771) 9 % MONOCYTES RELATIVE PERCENT (BEAKER) (test dqlo=536) 9 % EOSINOPHILS RELATIVE PERCENT (BEAKER) (test krlq=146) 0 % BASOPHILS RELATIVE PERCENT (BEAKER) (test aqih=599) 0 % NEUTROPHILS ABSOLUTE COUNT (BEAKER) (test ubqt=655) 6.56 K/ L 1.56-6.13 LYMPHOCYTES ABSOLUTE COUNT (BEAKER) (test cted=831) 0.73 K/ L 1.18-3.74 MONOCYTES ABSOLUTE COUNT (BEAKER) (test wugg=667) 0.74 K/ L 0.24-0.36 EOSINOPHILS ABSOLUTE COUNT (BEAKER) (test pvfh=912) 0.02 K/ L 0.04-0.36 BASOPHILS ABSOLUTE COUNT (BEAKER) (test kljg=337) 0.02 K/ L 0.01-0.08 IMMATURE GRANULOCYTES-RELATIVE PERCENT (BEAKER) (test apxk=1398) 1 % 0-1 POCT-GLUCOSE [id number] 00:06:00* Test Item Value Reference Range Comments POC-GLUCOSE METER (BEAKER) (test mkay=6936) 108 mg/dL 70-110 TESTED AT [address] [address] POCT-GLUCOSE [id number] 17:45:00* Test Item Value Reference Range Comments POC-GLUCOSE METER (BEAKER) (test xbvk=0741) 139 mg/dL 70-110 TESTED AT [address] [address] POCT-GLUCOSE [id number] 12:34:00* Test Item Value Reference Range Comments POC-GLUCOSE METER (BEAKER) (test bgxz=9069) 114 mg/dL 70-110 TESTED AT [address] [address] POCT-GLUCOSE [id number] 08:11:00* Test Item Value Reference Range Comments POC-GLUCOSE METER (BEAKER) (test wdff=9294) 93 mg/dL 70-110 TESTED AT [address] [address] BASIC METABOLIC [id number] 04:49:00* Test Item Value Reference Range Comments SODIUM (BEAKER) (test reev=956) 139 meq/L 136-145 POTASSIUM (BEAKER) (test qfug=417) 4.1 meq/L 3.5-5.1 CHLORIDE (BEAKER) (test wcuj=268) 108 meq/L 98-107 CO2 (BEAKER) (test dvty=786) 23 meq/L 22-29 BLOOD UREA NITROGEN (BEAKER) (test qmgw=572) 18 mg/dL 7-21 CREATININE (BEAKER) (test kcqr=736) 0.57 mg/dL 0.57-1.25 GLUCOSE RANDOM (BEAKER) (test jqdi=577) 104 mg/dL 70-105 CALCIUM (BEAKER) (test ipav=895) 9.2 mg/dL 8.4-10.2 EGFR (BEAKER) (test degq=8275) 105 mL/min/1.73 sq m ESTIMATED GFR IS NOT ACCURATE CREATININE CLEARANCE IN PREDICTING GLOMERULAR FILTRATION RATE. ESTIMATED GFR IS NOT APPLICABLE FOR DIALYSIS PATIENTS. CBC W/PLT COUNT & AUTO [id number] 04:22:00* Test Item Value Reference Range Comments WHITE BLOOD CELL COUNT (BEAKER) (test qxjl=792) 9.8 K/ L 3.5-10.5 RED BLOOD CELL COUNT (BEAKER) (test pxcx=820) 4.27 M/ L 3.93-5.22 HEMOGLOBIN (BEAKER) (test wmbo=133) 13.0 GM/DL 11.2-15.7 HEMATOCRIT (BEAKER) (test vnrb=675) 41.1 % 34.1-44.9 MEAN CORPUSCULAR VOLUME (BEAKER) (test mpiy=749) 96.3 fL 79.4-94.8 MEAN CORPUSCULAR HEMOGLOBIN (BEAKER) (test ydtu=468) 30.4 pg 25.6-32.2 MEAN CORPUSCULAR HEMOGLOBIN CONC (BEAKER) (test hcfd=479) 31.6 GM/DL 32.2- 35.5 RED CELL DISTRIBUTION WIDTH (BEAKER) (test gvke=264) 15.1 % 11.7-14.4 PLATELET COUNT (BEAKER) (test kogl=519) 250 K/CU MM 150-450 MEAN PLATELET VOLUME (BEAKER) (test npsq=399) 9.5 fL 9.4-12.3 NUCLEATED RED BLOOD CELLS (BEAKER) (test qwol=619) 0 /100 WBC 0-0 NEUTROPHILS RELATIVE PERCENT (BEAKER) (test vzvk=878) 84 % LYMPHOCYTES RELATIVE PERCENT (BEAKER) (test rctv=107) 7 % MONOCYTES RELATIVE PERCENT (BEAKER) (test wwvp=502) 8 % EOSINOPHILS RELATIVE PERCENT (BEAKER) (test rles=480) 0 % BASOPHILS RELATIVE PERCENT (BEAKER) (test ertn=737) 0 % NEUTROPHILS ABSOLUTE COUNT (BEAKER) (test vvjr=572) 8.27 K/ L 1.56-6.13 LYMPHOCYTES ABSOLUTE COUNT (BEAKER) (test jlsk=367) 0.64 K/ L 1.18-3.74 MONOCYTES ABSOLUTE COUNT (BEAKER) (test gbuk=701) 0.75 K/ L 0.24-0.36 EOSINOPHILS ABSOLUTE COUNT (BEAKER) (test uqai=263) 0.03 K/ L 0.04-0.36 BASOPHILS ABSOLUTE COUNT (BEAKER) (test fooo=009) 0.02 K/ L 0.01-0.08 IMMATURE GRANULOCYTES-RELATIVE PERCENT (BEAKER) (test qxtq=3241) 1 % 0-1 POCT-GLUCOSE [id number] 22:54:00* Test Item Value Reference Range Comments POC-GLUCOSE METER (BEAKER) (test rxlr=2513) 168 mg/dL 70-110 TESTED AT [place] [id number] [facility] [address] POCT-GLUCOSE [id number] 18:47:00* Test Item Value Reference Range Comments POC-GLUCOSE METER (BEAKER) (test gjxq=1419) 149 mg/dL 70-110 TESTED AT [address] [address] POCT-GLUCOSE [id number] 12:10:00* Test Item Value Reference Range Comments POC-GLUCOSE METER (BEAKER) (test cjfj=2443) 124 mg/dL 70-110 TESTED AT [address] [address] CBC W/PLT COUNT & AUTO [id number] 07:27:00* Test Item Value Reference Range Comments WHITE BLOOD CELL COUNT (BEAKER) (test eojm=556) 8.7 K/ L 3.5-10.5 RED BLOOD CELL COUNT (BEAKER) (test vzlx=612) 4.21 M/ L 3.93-5.22 HEMOGLOBIN (BEAKER) (test vlcl=786) 13.1 GM/DL 11.2-15.7 HEMATOCRIT (BEAKER) (test mwro=587) 41.1 % 34.1-44.9 MEAN CORPUSCULAR VOLUME (BEAKER) (test eipo=788) 97.6 fL 79.4-94.8 MEAN CORPUSCULAR HEMOGLOBIN (BEAKER) (test uniw=873) 31.1 pg 25.6-32.2 MEAN CORPUSCULAR HEMOGLOBIN CONC (BEAKER) (test savo=485) 31.9 GM/DL 32.2- 35.5 RED CELL DISTRIBUTION WIDTH (BEAKER) (test lvqd=868) 15.1 % 11.7-14.4 PLATELET COUNT (BEAKER) (test lvbg=412) 211 K/CU MM 150-450 MEAN PLATELET VOLUME (BEAKER) (test qtdu=311) 9.9 fL 9.4-12.3 NUCLEATED RED BLOOD CELLS (BEAKER) (test ymhe=233) 0 /100 WBC 0-0 NEUTROPHILS RELATIVE PERCENT (BEAKER) (test rizj=566) 81 % LYMPHOCYTES RELATIVE PERCENT (BEAKER) (test aaru=712) 8 % MONOCYTES RELATIVE PERCENT (BEAKER) (test suxs=926) 8 % EOSINOPHILS RELATIVE PERCENT (BEAKER) (test xzwq=539) 1 % BASOPHILS RELATIVE PERCENT (BEAKER) (test avwj=582) 0 % NEUTROPHILS ABSOLUTE COUNT (BEAKER) (test lgdu=752) 6.98 K/ L 1.56-6.13 LYMPHOCYTES ABSOLUTE COUNT (BEAKER) (test yerp=849) 0.71 K/ L 1.18-3.74 MONOCYTES ABSOLUTE COUNT (BEAKER) (test tqck=868) 0.69 K/ L 0.24-0.36 EOSINOPHILS ABSOLUTE COUNT (BEAKER) (test utuw=052) 0.10 K/ L 0.04-0.36 BASOPHILS ABSOLUTE COUNT (BEAKER) (test noyx=735) 0.03 K/ L 0.01-0.08 IMMATURE GRANULOCYTES-RELATIVE PERCENT (BEAKER) (test nemc=3259) 2 % 0-1 BASIC METABOLIC [id number] 06:41:00* Test Item Value Reference Range Comments SODIUM (BEAKER) (test vvpj=896) 140 meq/L 136-145 POTASSIUM (BEAKER) (test lklc=155) 3.9 meq/L 3.5-5.1 CHLORIDE (BEAKER) (test nvky=033) 108 meq/L 98-107 CO2 (BEAKER) (test qdul=164) 22 meq/L 22-29 BLOOD UREA NITROGEN (BEAKER) (test sjla=058) 20 mg/dL 7-21 CREATININE (BEAKER) (test lpcl=277) 0.60 mg/dL 0.57-1.25 GLUCOSE RANDOM (BEAKER) (test jwtw=405) 90 mg/dL 70-105 CALCIUM (BEAKER) (test ussi=316) 9.0 mg/dL 8.4-10.2 EGFR (BEAKER) (test brkd=8604) 99 mL/min/1.73 sq m ESTIMATED GFR IS NOT ACCURATE CREATININE CLEARANCE IN PREDICTING GLOMERULAR FILTRATION RATE. ESTIMATED GFR IS NOT APPLICABLE FOR DIALYSIS PATIENTS. POCT-GLUCOSE [id number] 05:49:00* Test Item Value Reference Range Comments POC-GLUCOSE METER (BEAKER) (test uzrw=0085) 91 mg/dL 70-110 TESTED AT [facility] [address] [facility] [address] POCT-GLUCOSE [id number] 00:10:00* Test Item Value Reference Range Comments POC-GLUCOSE METER (BEAKER) (test wlde=4190) 101 mg/dL 70-110 TESTED AT [facility] [address] [facility] [address] POCT-GLUCOSE [id number] 18:35:00* Test Item Value Reference Range Comments POC-GLUCOSE METER (BEAKER) (test tdqt=5096) 142 mg/dL 70-110 TESTED AT [address] [address] POCT-GLUCOSE [id number] 12:27:00* Test Item Value Reference Range Comments POC-GLUCOSE METER (BEAKER) (test ivpi=5337) 136 mg/dL 70-110 TESTED AT [place] [id number] [facility] [address] [id number] 10:35:00* Test Item Value Reference Range Comments LIPASE (BEAKER) (test mcrb=894) 65 U/L 8-78 [id number] 10:35:00* Test Item Value Reference Range Comments AMYLASE (BEAKER) (test xdhy=621) 64 U/L 25-125 HEPATIC FUNCTION [id number] 10:35:00* Test Item Value Reference Range Comments TOTAL PROTEIN (BEAKER) (test cdtd=159) 5.9 gm/dL 6.0-8.3 ALBUMIN (BEAKER) (test crkc=7089) 3.2 g/dL 3.5-5.0 BILIRUBIN TOTAL (BEAKER) (test jpao=921) 0.7 mg/dL 0.2-1.2 BILIRUBIN DIRECT (BEAKER) (test tcpb=105) 0.3 mg/dL 0.1-0.5 ALKALINE PHOSPHATASE (BEAKER) (test tuls=027) 55 U/L 40-150 AST (SGOT) (BEAKER) (test iguz=053) 14 U/L 5-34 ALT (SGPT) (BEAKER) (test xglc=856) 14 U/L 6-55 RAD, ABDOMEN/KUB, 1 VIEW [id number] 09:42:00Reason for exam:->abdominal painFINAL REPORT Abdomen one view Comparison: None. Reason for exam: abdominal pain Findings: Contrast pattern is nonspecific, and nonobstructive. A small to moderate amount of fecal content is seen in the colon , and air is noted in the rectum. No free air is identified. No suspicious calcifications. Osseous structures demonstrate mild degenerative changes. Signed : Jordan Mathews Verified Date/Time: 05/24/2017 09:42:30 Reading Location: [facility] Radiology Reading Room C METABOLIC [id number] 06:47:00* Test Item Value Reference Range Comments SODIUM (BEAKER) (test sqwc=560) 138 meq/L 136-145 POTASSIUM (BEAKER) (test fozy=585) 3.8 meq/L 3.5-5.1 Specimen slightly hemolyzed CHLORIDE (BEAKER) (test mphc=750) 109 meq/L 98-107 CO2 (BEAKER) (test sxal=750) 22 meq/L 22-29 BLOOD UREA NITROGEN (BEAKER) (test qsus=877) 19 mg/dL 7-21 CREATININE (BEAKER) (test bsvz=278) 0.56 mg/dL 0.57-1.25 Specimen slightly hemolyzed GLUCOSE RANDOM (BEAKER) (test rlrl=158) 108 mg/dL 70-105 CALCIUM (BEAKER) (test vpan=906) 8.5 mg/dL 8.4-10.2 EGFR (BEAKER) (test kjvv=7766) 108 mL/min/1.73 sq m ESTIMATED GFR IS NOT ACCURATE CREATININE CLEARANCE IN PREDICTING GLOMERULAR FILTRATION RATE. ESTIMATED GFR IS NOT APPLICABLE FOR DIALYSIS PATIENTS. POCT-GLUCOSE [id number] 06:09:00* Test Item Value Reference Range Comments POC-GLUCOSE METER (BEAKER) (test gipu=5213) 102 mg/dL 70-110 TESTED AT [facility] [address] [facility] [address] CBC W/PLT COUNT & AUTO [id number] 05:42:00* Test Item Value Reference Range Comments WHITE BLOOD CELL COUNT (BEAKER) (test izrw=528) 9.7 K/ L 3.5-10.5 RED BLOOD CELL COUNT (BEAKER) (test tqlj=471) 4.28 M/ L 3.93-5.22 HEMOGLOBIN (BEAKER) (test yxav=247) 13.1 GM/DL 11.2-15.7 HEMATOCRIT (BEAKER) (test kgzn=759) 41.2 % 34.1-44.9 MEAN CORPUSCULAR VOLUME (BEAKER) (test eydd=992) 96.3 fL 79.4-94.8 MEAN CORPUSCULAR HEMOGLOBIN (BEAKER) (test iind=400) 30.6 pg 25.6-32.2 MEAN CORPUSCULAR HEMOGLOBIN CONC (BEAKER) (test rdhc=879) 31.8 GM/DL 32.2- 35.5 RED CELL DISTRIBUTION WIDTH (BEAKER) (test quhe=693) 15.4 % 11.7-14.4 PLATELET COUNT (BEAKER) (test wpkq=938) 192 K/CU MM 150-450 MEAN PLATELET VOLUME (BEAKER) (test zhup=947) 9.3 fL 9.4-12.3 NUCLEATED RED BLOOD CELLS (BEAKER) (test lkix=800) 0 /100 WBC 0-0 NEUTROPHILS RELATIVE PERCENT (BEAKER) (test ewsf=715) 81 % LYMPHOCYTES RELATIVE PERCENT (BEAKER) (test tfuk=975) 6 % MONOCYTES RELATIVE PERCENT (BEAKER) (test myzs=052) 8 % EOSINOPHILS RELATIVE PERCENT (BEAKER) (test kent=630) 3 % BASOPHILS RELATIVE PERCENT (BEAKER) (test qbpd=186) 0 % NEUTROPHILS ABSOLUTE COUNT (BEAKER) (test cyqq=246) 7.87 K/ L 1.56-6.13 LYMPHOCYTES ABSOLUTE COUNT (BEAKER) (test pccm=695) 0.61 K/ L 1.18-3.74 MONOCYTES ABSOLUTE COUNT (BEAKER) (test cfoi=081) 0.79 K/ L 0.24-0.36 EOSINOPHILS ABSOLUTE COUNT (BEAKER) (test zybq=898) 0.25 K/ L 0.04-0.36 BASOPHILS ABSOLUTE COUNT (BEAKER) (test rxat=379) 0.02 K/ L 0.01-0.08 IMMATURE GRANULOCYTES-RELATIVE PERCENT (BEAKER) (test owvf=9129) 2 % 0-1 POCT-GLUCOSE [id number] 00:14:00* Test Item Value Reference Range Comments POC-GLUCOSE METER (BEAKER) (test ecer=8564) 101 mg/dL 70-110 TESTED AT [facility] [address] [facility] [address] POCT-GLUCOSE [id number] 18:12:00* Test Item Value Reference Range Comments POC-GLUCOSE METER (BEAKER) (test gjkf=7088) 116 mg/dL 70-110 TESTED AT [facility] [address] [facility] [address] POCT-GLUCOSE [id number] 12:09:00* Test Item Value Reference Range Comments POC-GLUCOSE METER (BEAKER) (test dgfg=7617) 127 mg/dL 70-110 TESTED AT [place] [id number] [facility] [address] POCT-GLUCOSE [id number] 06:51:00* Test Item Value Reference Range Comments POC-GLUCOSE METER (BEAKER) (test vglj=3568) 114 mg/dL 70-110 TESTED AT [address] [address] BASIC METABOLIC [id number] 05:25:00* Test Item Value Reference Range Comments SODIUM (BEAKER) (test qsei=341) 138 meq/L 136-145 POTASSIUM (BEAKER) (test tlpt=589) 4.7 meq/L 3.5-5.1 Specimen moderately hemolyzed CHLORIDE (BEAKER) (test yftc=260) 109 meq/L 98-107 CO2 (BEAKER) (test vxqe=146) 23 meq/L 22-29 BLOOD UREA NITROGEN (BEAKER) (test bvxw=216) 14 mg/dL 7-21 CREATININE (BEAKER) (test mdst=512) 0.63 mg/dL 0.57-1.25 Specimen moderately hemolyzed GLUCOSE RANDOM (BEAKER) (test erip=927) 105 mg/dL 70-105 CALCIUM (BEAKER) (test hctd=802) 8.4 mg/dL 8.4-10.2 EGFR (BEAKER) (test flyo=1084) 94 mL/min/1.73 sq m ESTIMATED GFR IS NOT ACCURATE CREATININE CLEARANCE IN PREDICTING GLOMERULAR FILTRATION RATE. ESTIMATED GFR IS NOT APPLICABLE FOR DIALYSIS PATIENTS. CBC W/PLT COUNT & AUTO [id number] 05:03:00* Test Item Value Reference Range Comments WHITE BLOOD CELL COUNT (BEAKER) (test radp=740) 9.3 K/ L 3.5-10.5 RED BLOOD CELL COUNT (BEAKER) (test rxyl=793) 4.36 M/ L 3.93-5.22 HEMOGLOBIN (BEAKER) (test kpuu=731) 13.4 GM/DL 11.2-15.7 HEMATOCRIT (BEAKER) (test wbay=395) 42.4 % 34.1-44.9 MEAN CORPUSCULAR VOLUME (BEAKER) (test jycb=775) 97.2 fL 79.4-94.8 MEAN CORPUSCULAR HEMOGLOBIN (BEAKER) (test yfzg=241) 30.7 pg 25.6-32.2 MEAN CORPUSCULAR HEMOGLOBIN CONC (BEAKER) (test tgdp=258) 31.6 GM/DL 32.2- 35.5 RED CELL DISTRIBUTION WIDTH (BEAKER) (test hesc=521) 15.2 % 11.7-14.4 PLATELET COUNT (BEAKER) (test doqz=910) 204 K/CU MM 150-450 MEAN PLATELET VOLUME (BEAKER) (test oyaa=538) 9.2 fL 9.4-12.3 NUCLEATED RED BLOOD CELLS (BEAKER) (test gyqo=848) 0 /100 WBC 0-0 NEUTROPHILS RELATIVE PERCENT (BEAKER) (test icxp=311) 81 % LYMPHOCYTES RELATIVE PERCENT (BEAKER) (test pive=613) 8 % MONOCYTES RELATIVE PERCENT (BEAKER) (test bkvh=170) 9 % EOSINOPHILS RELATIVE PERCENT (BEAKER) (test piim=694) 1 % BASOPHILS RELATIVE PERCENT (BEAKER) (test hdnm=531) 0 % NEUTROPHILS ABSOLUTE COUNT (BEAKER) (test wtyu=115) 7.49 K/ L 1.56-6.13 LYMPHOCYTES ABSOLUTE COUNT (BEAKER) (test cbqi=527) 0.70 K/ L 1.18-3.74 MONOCYTES ABSOLUTE COUNT (BEAKER) (test qvgf=842) 0.84 K/ L 0.24-0.36 EOSINOPHILS ABSOLUTE COUNT (BEAKER) (test jvvq=319) 0.10 K/ L 0.04-0.36 BASOPHILS ABSOLUTE COUNT (BEAKER) (test cerf=854) 0.02 K/ L 0.01-0.08 IMMATURE GRANULOCYTES-RELATIVE PERCENT (BEAKER) (test siuu=5923) 1 % 0-1 POCT-GLUCOSE [id number] 00:53:00* Test Item Value Reference Range Comments POC-GLUCOSE METER (BEAKER) (test dipm=6239) 110 mg/dL 70-110 TESTED AT [facility] [address] [facility] [address] POCT-GLUCOSE [id number] 18:30:00* Test Item Value Reference Range Comments POC-GLUCOSE METER (BEAKER) (test fkyk=2317) 107 mg/dL 70-110 TESTED AT [place] [id number] [facility] [address] POCT-GLUCOSE [id number] 12:15:00* Test Item Value Reference Range Comments POC-GLUCOSE METER (BEAKER) (test rmqc=1212) 100 mg/dL 70-110 TESTED AT [address] [address] POCT-GLUCOSE [id number] 12:07:00* Test Item Value Reference Range Comments POC-GLUCOSE METER (BEAKER) (test mxkx=3450) 94 mg/dL 70-110 TESTED AT [address] [address] CBC W/PLT COUNT & AUTO [id number] 04:55:00* Test Item Value Reference Range Comments WHITE BLOOD CELL COUNT (BEAKER) (test gnaw=812) 11.6 K/ L 3.5-10.5 RED BLOOD CELL COUNT (BEAKER) (test pdke=888) 4.37 M/ L 3.93-5.22 HEMOGLOBIN (BEAKER) (test zukn=203) 13.3 GM/DL 11.2-15.7 HEMATOCRIT (BEAKER) (test ddib=969) 42.1 % 34.1-44.9 MEAN CORPUSCULAR VOLUME (BEAKER) (test kxpi=959) 96.3 fL 79.4-94.8 MEAN CORPUSCULAR HEMOGLOBIN (BEAKER) (test csza=195) 30.4 pg 25.6-32.2 MEAN CORPUSCULAR HEMOGLOBIN CONC (BEAKER) (test tfmd=067) 31.6 GM/DL 32.2- 35.5 RED CELL DISTRIBUTION WIDTH (BEAKER) (test qspw=238) 15.5 % 11.7-14.4 PLATELET COUNT (BEAKER) (test wunh=934) 220 K/CU MM 150-450 MEAN PLATELET VOLUME (BEAKER) (test lzhp=731) 9.6 fL 9.4-12.3 NUCLEATED RED BLOOD CELLS (BEAKER) (test woww=911) 0 /100 WBC 0-0 NEUTROPHILS RELATIVE PERCENT (BEAKER) (test thjq=695) 82 % LYMPHOCYTES RELATIVE PERCENT (BEAKER) (test nxtm=997) 6 % MONOCYTES RELATIVE PERCENT (BEAKER) (test fskz=651) 10 % EOSINOPHILS RELATIVE PERCENT (BEAKER) (test dznd=722) 0 % BASOPHILS RELATIVE PERCENT (BEAKER) (test irmv=545) 0 % NEUTROPHILS ABSOLUTE COUNT (BEAKER) (test fzds=449) 9.54 K/ L 1.56-6.13 LYMPHOCYTES ABSOLUTE COUNT (BEAKER) (test ogzz=497) 0.71 K/ L 1.18-3.74 MONOCYTES ABSOLUTE COUNT (BEAKER) (test nioo=099) 1.16 K/ L 0.24-0.36 EOSINOPHILS ABSOLUTE COUNT (BEAKER) (test emoh=975) 0.02 K/ L 0.04-0.36 BASOPHILS ABSOLUTE COUNT (BEAKER) (test psos=317) 0.02 K/ L 0.01-0.08 IMMATURE GRANULOCYTES-RELATIVE PERCENT (BEAKER) (test uilm=4669) 2 % 0-1 BASIC METABOLIC [id number] 04:24:00* Test Item Value Reference Range Comments SODIUM (BEAKER) (test njka=478) 138 meq/L 136-145 POTASSIUM (BEAKER) (test owjm=133) 4.2 meq/L 3.5-5.1 CHLORIDE (BEAKER) (test ulna=186) 110 meq/L 98-107 CO2 (BEAKER) (test bosl=718) 22 meq/L 22-29 BLOOD UREA NITROGEN (BEAKER) (test mfbv=756) 16 mg/dL 7-21 CREATININE (BEAKER) (test wnjv=630) 0.58 mg/dL 0.57-1.25 GLUCOSE RANDOM (BEAKER) (test efez=749) 103 mg/dL 70-105 CALCIUM (BEAKER) (test ghmd=319) 8.6 mg/dL 8.4-10.2 EGFR (BEAKER) (test rssu=7635) 103 mL/min/1.73 sq m ESTIMATED GFR IS NOT ACCURATE CREATININE CLEARANCE IN PREDICTING GLOMERULAR FILTRATION RATE. ESTIMATED GFR IS NOT APPLICABLE FOR DIALYSIS PATIENTS. POCT-GLUCOSE [id number] 00:24:00* Test Item Value Reference Range Comments POC-GLUCOSE METER (BEAKER) (test dded=6791) 97 mg/dL 70-110 TESTED AT [facility] [address] [facility] [address] POCT-GLUCOSE [id number] 18:34:00* Test Item Value Reference Range Comments POC-GLUCOSE METER (BEAKER) (test tsyl=0228) 112 mg/dL 70-110 TESTED AT [place] [id number] [facility] [address] POCT-GLUCOSE [id number] 13:07:00* Test Item Value Reference Range Comments POC-GLUCOSE METER (BEAKER) (test zrfr=2184) 104 mg/dL 70-110 TESTED AT [address] [address] POCT-GLUCOSE [id number] 06:23:00* Test Item Value Reference Range Comments POC-GLUCOSE METER (BEAKER) (test oxcv=2078) 119 mg/dL 70-110 TESTED AT [address] [address] [id number] 05:37:00* Test Item Value Reference Range Comments PHOSPHORUS (BEAKER) (test wfqz=500) 2.5 mg/dL 2.3-4.7 Once on admission and Daily AM [id number] 05:37:00* Test Item Value Reference Range Comments MAGNESIUM (BEAKER) (test nggd=257) 2.0 mg/dL 1.6-2.6 Once on admission and Daily AM afterwardsBASIC METABOLIC [id number] 05:37: 00* Test Item Value Reference Range Comments SODIUM (BEAKER) (test bquq=116) 136 meq/L 136-145 POTASSIUM (BEAKER) (test llrm=426) 4.2 meq/L 3.5-5.1 CHLORIDE (BEAKER) (test ssfy=953) 105 meq/L 98-107 CO2 (BEAKER) (test lqtn=157) 22 meq/L 22-29 BLOOD UREA NITROGEN (BEAKER) (test ybnn=454) 14 mg/dL 7-21 CREATININE (BEAKER) (test lczo=992) 0.58 mg/dL 0.57-1.25 GLUCOSE RANDOM (BEAKER) (test qzqe=946) 126 mg/dL 70-105 CALCIUM (BEAKER) (test setx=785) 8.8 mg/dL 8.4-10.2 EGFR (BEAKER) (test tjzv=0849) 103 mL/min/1.73 sq m ESTIMATED GFR IS NOT ACCURATE CREATININE CLEARANCE IN PREDICTING GLOMERULAR FILTRATION RATE. ESTIMATED GFR IS NOT APPLICABLE FOR DIALYSIS PATIENTS. Once on admission and Daily AM afterwardsCBC W/PLT COUNT & AUTO [id number] 04:08:00* Test Item Value Reference Range Comments WHITE BLOOD CELL COUNT (BEAKER) (test vqah=994) 8.8 K/ L 3.5-10.5 RED BLOOD CELL COUNT (BEAKER) (test lnnl=221) 3.81 M/ L 3.93-5.22 HEMOGLOBIN (BEAKER) (test rpaf=535) 11.7 GM/DL 11.2-15.7 HEMATOCRIT (BEAKER) (test pfly=907) 37.1 % 34.1-44.9 MEAN CORPUSCULAR VOLUME (BEAKER) (test ytyg=742) 97.4 fL 79.4-94.8 MEAN CORPUSCULAR HEMOGLOBIN (BEAKER) (test raqa=165) 30.7 pg 25.6-32.2 MEAN CORPUSCULAR HEMOGLOBIN CONC (BEAKER) (test imjn=170) 31.5 GM/DL 32.2- 35.5 RED CELL DISTRIBUTION WIDTH (BEAKER) (test xoqt=995) 15.0 % 11.7-14.4 PLATELET COUNT (BEAKER) (test gjwf=813) 81 K/CU MM 150-450 MEAN PLATELET VOLUME (BEAKER) (test dnfo=505) 9.8 fL 9.4-12.3 NUCLEATED RED BLOOD CELLS (BEAKER) (test brnj=782) 0 /100 WBC 0-0 NEUTROPHILS RELATIVE PERCENT (BEAKER) (test rren=188) 90 % LYMPHOCYTES RELATIVE PERCENT (BEAKER) (test rkep=745) 3 % MONOCYTES RELATIVE PERCENT (BEAKER) (test xlva=812) 5 % EOSINOPHILS RELATIVE PERCENT (BEAKER) (test bhmy=231) 0 % BASOPHILS RELATIVE PERCENT (BEAKER) (test iecs=435) 0 % NEUTROPHILS ABSOLUTE COUNT (BEAKER) (test mqjs=651) 7.89 K/ L 1.56-6.13 LYMPHOCYTES ABSOLUTE COUNT (BEAKER) (test rfqt=228) 0.30 K/ L 1.18-3.74 MONOCYTES ABSOLUTE COUNT (BEAKER) (test chma=777) 0.41 K/ L 0.24-0.36 EOSINOPHILS ABSOLUTE COUNT (BEAKER) (test ksrl=706) 0.01 K/ L 0.04-0.36 BASOPHILS ABSOLUTE COUNT (BEAKER) (test unsk=071) 0.03 K/ L 0.01-0.08 IMMATURE GRANULOCYTES-RELATIVE PERCENT (BEAKER) (test bzpj=1681) 2 % 0-1 [id number] 04:00:00* Test Item Value Reference Range Comments MAGNESIUM (BEAKER) (test acqa=065) 4.3 mg/dL 1.6-2.6 Specimen markedly hemolyzed Once on admission and Daily AM afterwardsOnce on admission and Daily AM afterwardsOnce on admission and Daily AM [id number] 04:00:00 * Test Item Value Reference Range Comments PHOSPHORUS (BEAKER) (test thnu=680) 3.3 mg/dL 2.3-4.7 Specimen markedly hemolyzed Once on admission and Daily AM afterwardsOnce on admission and Daily AM afterwardsOnce on admission and Daily AM afterwardsCT BRAIN WITHOUT IV CONTRAST - [id number] 03:59:00Reason for exam:->ICH follow upFINAL REPORT CT BRAIN WITHOUT IV CONTRAST - PORTABLE INDICATION: ICH follow up TECHNIQUE: Noncontrast axial imaging was obtained from the vertex to the skull base. Axial images were reconstructed using a bone algorithm. DOSE REDUCTION: Dose modulation, iterative reconstruction, and/or weight-based adjustment of the mA/kV was utilized to reduce the radiation dose to as low as reasonably achievable. COMPARISON: May 20, 2017 FINDINGS: No interval change in size or mass effect of the left basal ganglia hemorrhage with intraventricular its tension. Interval placement of EVD terminating near the level of the foramen of Monro. Ventricular volume has slightly decreased as a result. Volume of layering fluid in the posterior horns has increased. Associated edema is similar to the prior examination. Note the changes are identified. Osseous structures are stable. IMPRESSION: Slightly decreased ventricular volume overall following the placement. Otherwise grossly stable intracranial appearance compared to the prior date. Signed: JR Clark Robert MDReport Verified Date/Time: 05/21/2017 03:59:26 Reading Location: [address] Reading Room -GLUCOSE [id number] 00:25:00* Test Item Value Reference Range Comments POC-GLUCOSE METER (BEAKER) (test gdyd=9384) 139 mg/dL 70-110 TESTED AT [facility] [address] [facility] [address] POCT-GLUCOSE [id number] 18:30:00* Test Item Value Reference Range Comments POC-GLUCOSE METER (BEAKER) (test rwrr=6379) 116 mg/dL 70-110 TESTED AT [facility] [address] [facility] [address] CT BRAIN WITHOUT IV CONTRAST - [id number] 17:14:00Reason for exam:->ICH follow upFINAL REPORT CT Head without contrast CLINICAL HISTORY: ICH follow up TECHNIQUE: Contiguous axial images through the head without contrast on the portable CT unit. This exam was performed according to the departmental dose optimization program which includes automated exposure control, adjustment of the mA and/or kV according to the patient size, and/or use of an iterative reconstruction technique. COMPARISON: Not available FINDINGS : There is an acute hemorrhage involving the anterolateral left basal ganglia and deep white matter measuring approximately 4.4 cm x 1.5 cm. There is intraventricular extension of hemorrhage into the left greater than right lateral ventricles, third ventricle, cerebral aqueduct, and fourth ventricle. Mass effect narrows the left lateral ventricle with mild rightward shift of the septum pellucidum. There is mild asymmetric prominence of the right temporal horn suggestive of early or partial ventricular entrapment. There is no definitive CT evidence for an acute territorial infarct. The skull is intact. The visualized paranasal sinuses are well-aerated. IMPRESSION: Acute hemorrhage of the left lateral basal ganglia with intraventricular extension of hemorrhage as discussed above. Comparison with outside imaging is requested. Signed: Elba Love MDReport Verified Date/Time: 05/20/2017 17:14:44 Reading Location: [facility] Radiology Reading Room TIC FUNCTION [id number] 15: 19:00* Test Item Value Reference Range Comments TOTAL PROTEIN (BEAKER) (test pwtp=600) 6.8 gm/dL 6.0-8.3 ALBUMIN (BEAKER) (test ezkx=0818) 3.8 g/dL 3.5-5.0 BILIRUBIN TOTAL (BEAKER) (test gejv=733) 0.4 mg/dL 0.2-1.2 BILIRUBIN DIRECT (BEAKER) (test qhtf=882) 0.2 mg/dL 0.1-0.5 ALKALINE PHOSPHATASE (BEAKER) (test achw=295) 61 U/L 40-150 AST (SGOT) (BEAKER) (test qobr=568) 13 U/L 5-34 ALT (SGPT) (BEAKER) (test nksj=723) 15 U/L 6-55 [id number] 15:08:00* Test Item Value Reference Range Comments PARTIAL THROMBOPLASTIN TIME (BEAKER) (test voxy=661) 25.2 seconds 22.5-36.0 PROTHROMBIN [id number] 15:07:00* Test Item Value Reference Range Comments PROTIME (BEAKER) (test rscr=566) 12.8 seconds 11.7-14.7 INR (BEAKER) (test llge=890) 1.0 <=5.9 RECOMMENDED COUMADIN/WARFARIN INR THERAPY RANGESSTANDARD DOSE: 2.0 - 3.0 Includes: PROPHYLAXIS for venous thrombosis, systemic embolization; TREATMENT for venous thrombosis and/or pulmonary embolus.HIGH RISK: Target INR is 2.5-3.5 for patients with mechanical heart valves.CBC W/PLT COUNT & AUTO [id number] 15:06:00* Test Item Value Reference Range Comments WHITE BLOOD CELL COUNT (BEAKER) (test vpib=938) 9.6 K/ L 3.5-10.5 RED BLOOD CELL COUNT (BEAKER) (test hsux=241) 4.46 M/ L 3.93-5.22 HEMOGLOBIN (BEAKER) (test rtle=286) 13.8 GM/DL 11.2-15.7 HEMATOCRIT (BEAKER) (test mgin=517) 42.8 % 34.1-44.9 MEAN CORPUSCULAR VOLUME (BEAKER) (test hbqa=664) 96.0 fL 79.4-94.8 MEAN CORPUSCULAR HEMOGLOBIN (BEAKER) (test uwtq=506) 30.9 pg 25.6-32.2 MEAN CORPUSCULAR HEMOGLOBIN CONC (BEAKER) (test nymd=026) 32.2 GM/DL 32.2- 35.5 RED CELL DISTRIBUTION WIDTH (BEAKER) (test pgfb=128) 15.0 % 11.7-14.4 PLATELET COUNT (BEAKER) (test emos=398) 200 K/CU MM 150-450 MEAN PLATELET VOLUME (BEAKER) (test kwwy=137) 9.2 fL 9.4-12.3 NUCLEATED RED BLOOD CELLS (BEAKER) (test tvip=825) 0 /100 WBC 0-0 NEUTROPHILS RELATIVE PERCENT (BEAKER) (test clcr=117) 88 % LYMPHOCYTES RELATIVE PERCENT (BEAKER) (test kkig=902) 4 % MONOCYTES RELATIVE PERCENT (BEAKER) (test mzgk=114) 6 % EOSINOPHILS RELATIVE PERCENT (BEAKER) (test yanm=548) 0 % BASOPHILS RELATIVE PERCENT (BEAKER) (test ofzf=623) 0 % NEUTROPHILS ABSOLUTE COUNT (BEAKER) (test nqvk=363) 8.38 K/ L 1.56-6.13 LYMPHOCYTES ABSOLUTE COUNT (BEAKER) (test uqco=649) 0.40 K/ L 1.18-3.74 MONOCYTES ABSOLUTE COUNT (BEAKER) (test gudc=327) 0.54 K/ L 0.24-0.36 EOSINOPHILS ABSOLUTE COUNT (BEAKER) (test vews=994) 0.01 K/ L 0.04-0.36 BASOPHILS ABSOLUTE COUNT (BEAKER) (test xoli=996) 0.02 K/ L 0.01-0.08 IMMATURE GRANULOCYTES-RELATIVE PERCENT (BEAKER) (test dryt=7745) 2 % 0-[address] [facility] [address] [place] [address] Patient Name: OLIVE JOHN MR #: [id number] : 1950 Age/Sex: 66/F Req #: [id number] Adm Physician: Ordered by: TIANA SMITH MD Report #: [id number] Location: ER Room/Bed: Procedure: [id number] CT/CT BRAIN WO Exam Date: 05/20/17 Exam Time: 1200 REPORT STATUS: Signed EXAMINATION: Head CT HISTORY: Evaluate for acute stroke COMPARISON: None. TECHNIQUE: Multidetector axial images were obtained without contrast from the foramen magnum to the vertex . The images were reconstructed using brain and bone algorithms. Thin section brain images were reformatted into coronal and sagittal planes. Intravenous contrast: None. Motion/streaking artifact limits the evaluation of the skull base and posterior cranial fossa. FINDINGS: Parenchyma: 1. Large acute intraparenchymal hemorrhage located in the left basal ganglia ( mostly dated putamen, with smaller satellite hemorrhagic foci along the medial aspect of the lentiform nucleus/possibly within the internal capsule. The hematoma measures about 3.5 x 2.6. Mild surrounding vasogenic edema and mild local mass effect with partial effacement of the left lateral and third ventricles and approximately 3 mm midline shift herniation to the right. 2. No mass or hemorrhage. No CT evidence of acute territorial vascular insult. Extra-axial spaces:No abnormal density. No extra-axial fluid collections Brain volume: Normal for age. Ventricles: No hydrocephalus or displacement. Arteries: No density suggestive of thrombus. Dural sinuses: No abnormal density. Extra-axial spaces : No abnormal density. Foramen magnum: No mass, Chiari malformation, or basilar invagination. Sella: No obvious mass. Paranasal/ mastoid sinuses: Imaged portions unremarkable. Skull/Scalp: No lytic or blastic lesions. No fractures. IMPRESSION: 1. Large acute intracranial hemorrhage within the left basal ganglia, possibly a hypertensive bleed. 2. Mild associated mass effect with 2 mm midline shift to the right. The findings were discussed with the tear physician Dr. Smith on 05/20/2017 at 12:48 PM Signed by: Dr. Carl Mcghee M.D. on 05/20/2017 12:52 PM Dictated By: CARL MCGHEE MD 1252 Transcribed By: PHILIP on 05/20/17 1252 COPY TO: TIANA SMITH MD CT ABDOMEN/PELVIS WO [place] [address] Patient Name: OLIVE JOHN MR #: [id number] : 1950 Age/ Sex: 66/F Req #: [id number] [facility] Center Physician: Ordered by : DESTINEE URIBE DO Report #: [id number] Location: CT Room/Bed: Procedure: CT/CT ABDOMEN/PELVIS WO Exam Date: 03/27/17 Exam Time: 1659 REPORT STATUS: Signed PROCEDURE: CT ABDOMEN AND PELVIS WITHOUT CONTRAST TECHNIQUE: The abdomen and pelvis were scanned utilizing a multidetector helical scanner from the diaphragm to the lesser trochanter after the oral administration of water. No IV contrast was administered due to history of iodine allergy. Oral Redicat was given. Coronal and sagittal multiplanar reformations were obtained. COMPARISON: None. INDICATIONS: ABDOMINAL DISTENSION, ABDOMINAL PAIN FINDINGS: ABSENCE OF INTRAVENOUS CONTRAST DECREASES SENSITIVITY FOR DETECTION OF FOCAL LESIONS AND VASCULAR PATHOLOGY. LOWER THORAX: Linear opacities in the lateral aspect of the left lower lobe likely represent subsegmental atelectasis or scarring. Lung bases are otherwise clear. HEPATOBILIARY: 0.9 cm fluid density lesion in hepatic segment VIII near the dome (series 2, image 12) and 1.0 cm fluid density lesion in hepatic segment (series 2 image 26), likely representing small cysts. Questionable 5 mm hypodense lesion in hepatic segment IVB (series 2 image 26). No other focal lesions. Liver size is normal. Hepatic contour is normal. No intra-or extrahepatic biliary ductal dilation. Gallbladder is unremarkable. SPLEEN: No splenomegaly. PANCREAS: No focal masses or ductal dilatation. ADRENALS: 0.9 x 0.9 cm hypodense lesion in the left adrenal gland (series 2 image 29), which measures less than 10 Hounsfield units in this noncontrast exam. Right adrenal gland is unremarkable. KIDNEYS/URETERS: Left: 3 mm and punctate nonobstructing calculi in the superior pole (coronal images 66 and 65). There are two 3 mm nonobstructing calculi as well as at least 3 punctate nonobstructing calculi in the inferior pole (coronal images 57, 59 and 58). 2 mm nonobstructing calculus in the mid to inferior aspect (coronal image 64 and series 2, image 43). No ureteral calculi. No hydronephrosis or obstruction. No renal contour abnormality. Right: 2 punctate nonobstructing calculi in the inferior pole (coronal images 60 and 64). No ureteral calculi. No hydronephrosis or obstruction. No renal contour abnormalities. PELVIC ORGANS/BLADDER: The bladder is grossly unremarkable. Uterus is absent. No adnexal masses. PERITONEUM / RETROPERITONEUM: Small amount of perihepatic ascites. Moderate amount of fluid in the pelvis. Large amount of fluid between the stomach and pancreas (series 2, image 34 and sagittal image 84), which is likely located in the lesser sac. Thickening and edema of the greater omentum (for example sagittal image 88 and series 2, image 44). LYMPH NODES: No adenopathy. VESSELS: Unremarkable. GI TRACT: No bowel dilation or evidence of obstruction. Contrast is noted from the stomach through the small bowel and into the ascending colon to the hepatic flexure. No pericolonic inflammatory changes. Descending and sigmoid colon are decompressed. BONES AND SOFT TISSUES: No acute bony abnormalities. Facet hypertrophy L4-L5 and L5-S1. Soft tissues are grossly unremarkable.. IMPRESSION: 1. large amount of fluid likely located in the lesser sac, with small amount of perihepatic ascites. A moderate amount of fluid in the pelvis. There is thickening and edema of the greater omentum. The posterior stomach wall is difficult to evaluate given the lack of intravenous contrast, however, given the findings , a gastric neoplastic lesion with possible invasion of the omentum is considered. The adjacent transverse colon is unremarkable, without focal lesions. Alternatively, sequela of recent pancreatitis is also considered. Assessment of pancreatic necrosis cannot be performed due to lack of intravenous contrast. 2. Subcentimeter low density lesions in the liver, likely represent small cysts. No contour abnormalities to suggest cirrhosis. 3. Multiple bilateral nonobstructing calculi. No ureteral calculi or hydronephrosis. 4. 0.9 cm left benign lipid rich adrenal adenoma. No further diagnostic imaging is indicated. 5. Findings discussed with Dr. Laurita Uribe March 27, 2017 at 18 00 hours Alfredo Hudson M.D. Dictated by: Alfredo Hudson M.D. on 03/27/2017 at 18:06 Electronically approved by: Alfredo Hudson M.D. on 03/27/2017 at 18:06 Dictated By: ALFREDO HUDSON MD 180 Transcribed By: MARIAJOSE on 03/27/171805 COPY TO: DESTINEE URIBE DO
--- OUTSIDE RECORDS SUMMARY | 2017-11-29 15:34 | XMS REPORT | Clinical Summary ---
Author Author DANNA [facility] Address Unknown Phone Unavailable Care Team Providers Care Department Of Mathematics Chair Name Role Phone PCP Unavailable Allergies Active Allergy Reactions Severity Noted Date Comments Iodine And Iodide Anaphylaxis High 05/20/2017 Containing Products Latex Rash Low 05/20/2017 Current Medications Prescription Sig. Disp. Refills Start End Date Status Date famotidine (PEPCID) 20 MG Take 1 tablet (20 mg 60 tablet 0 06/19/20 Active tablet total) by mouth every 12 17 (twelve) hours. gabapentin (NEURONTIN) Take 1 capsule (300 mg 60 capsule 0 06/19/20 06/19/20 Active 300 MG capsule total) by mouth 2 (two) 17 18 times daily. lisinopril Take 1 tablet (20 mg 30 tablet 0 06/20/20 06/20/20 Active (PRINIVIL,ZESTRIL) 20 MG total) by mouth daily. 17 18 tablet mycophenolate (CELLCEPT) Take 3 tablets (1,500 mg 180 tablet 0 06/19/20 Active 500 mg tablet total) by mouth 2 (two) 17 18 times daily. propranolol (INDERAL LA) Take 1 capsule (120 mg 30 capsule 0 06/20/20 06/20/20 Active 120 MG 24 hr capsule total) by mouth daily. 17 18 raloxifene (EVISTA) 60 mg Take 1 tablet (60 mg 30 tablet 0 06/20/20 06/20/20 Active tablet total) by mouth daily. 17 18 gabapentin (NEURONTIN) Take 300 mg by mouth 2 06/10/20 Discontin 300 MG capsule (two) times daily. 17 ued lisinopril Take 20 mg by mouth 2 06/10/20 Discontin (PRINIVIL,ZESTRIL) 20 MG (two) times daily. 17 ued tablet raloxifene (EVISTA) 60 mg Take 60 mg by mouth 06/10/20 Discontin tablet daily. 17 ued propranolol (INDERAL LA) Take 120 mg by mouth 06/10/20 Discontin 120 MG 24 hr capsule daily. 17 ued mycophenolate (CELLCEPT) Take 1,500 mg by mouth 2 06/10/20 Discontin 500 mg tablet (two) times daily. 17 ued amitriptyline (ELAVIL) 50 Take 50 mg by mouth 06/10/20 Discontin MG tablet nightly Migraine control 17 ued . SUMAtriptan (IMITREX) 100 Take 100 mg by mouth once 06/10/20 Discontin MG tablet as needed for Headaches 17 ued or Migraine. citric acid-potassium Take by mouth 3 (three) 06/10/20 Discontin citrate (POLYCITRA) times daily with meals. 17 ued 1,100-334 mg/5 mL solution tiotropium-olodaterol Inhale 2 puffs by mouth 06/10/20 Discontin (STIOLTO RESPIMAT) via inhaler daily. 17 ued 2.5-2.5 mcg/actuation Mist predniSONE (DELTASONE) 10 Take 10 mg by mouth 3 06/10/20 Discontin MG tablet (three) times daily. 17 ued omeprazole (PRILOSEC) 10 Take 10 mg by mouth 06/10/20 Discontin MG capsule daily. 17 ued zonisamide (ZONEGRAN) 100 Take 100 mg by mouth 06/10/20 Discontin MG capsule nightly. 17 ued amitriptyline (ELAVIL) 50 Take 50 mg by mouth 06/19/20 Discontin MG tabletIndications: nightly For migraine 17 ued Migraine Prevention control . propranolol (INDERAL LA) Take 120 mg by mouth 06/19/20 Discontin 120 MG 24 hr nightly Migraine control 17 ued capsuleIndications: . Migraine Prevention gabapentin (NEURONTIN) Take 300 mg by mouth 2 06/19/20 Discontin 300 MG (two) times daily. 17 ued capsuleIndications: Neuropathic Pain raloxifene (EVISTA) 60 mg Take 60 mg by mouth 06/19/20 Discontin tabletIndications: daily. 17 ued Post-Menopausal Osteoporosis predniSONE (DELTASONE) 20 Take 20 mg by mouth 3 06/19/20 Discontin MG tablet (three) times daily. 17 ued mycophenolate (CELLCEPT) Take 1,500 mg by mouth 2 06/19/20 Discontin 500 mg tablet (two) times daily. 17 ued omeprazole (PRILOSEC) 10 Take 10 mg by mouth 06/19/20 Discontin MG capsule daily. 17 ued eszopiclone (LUNESTA) 2 Take 2 mg by mouth every 06/19/20 Discontin MG tablet night as needed Take 17 ued immediately before bedtime. . docusate sodium (COLACE) Take 1 capsule (100 mg 60 capsule 0 06/19/20 06/29/20 100 MG capsule total) by mouth 2 (two) 17 17 times daily for 10 days. predniSONE (DELTASONE) 20 Take 1 tablet (20 mg 14 tablet 0 06/20/20 07/04/20 MG tablet total) by mouth daily for 17 17 14 days Then, take 15mg daily (5mg tablets prescribed by Dr. Arrieta).. sulfamethoxazole-trimetho Take 1 tablet (160 mg of 9 tablet 0 06/24/20 prim (BACTRIM DS) 800-160 trimethoprim total) by 17 17 mg per tablet mouth 2 (two) times daily for 5 days. 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 Headache 05/28/2017 Intraventricular hemorrhage (HCC) 05/27/2017 Obstructive hydrocephalus 05/27/2017 Essential hypertension 05/27/2017 Intraparenchymal hematoma of brain (HCC) 05/20/2017 Duodenal ulcer 07/22/2016 Overview: DX MADE BY RECENT EGD Uterus fibroma 07/22/2007 Osteoporosis Encounters Date Type Specialty Care Team Description 06/10/2017 [facility] Physical Medicine and Felicitas Ayers Churg- Kathy syndrome - Encounter Rehabilitation MD Mary Jane ([facility]);Intraventricular 06/20/2017 hemorrhage (HCC);Obstructive hydrocephalus;Gait abnormality;Impaired mobility and ADLs;Intraparenchymal hematoma of brain, left, without loss of consciousness, initial encounter (HCC);Stroke, hemorrhagic (HCC);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;Essential hypertension 05/20/2017 [facility] Internal Medicine Milton Shepherd Nontraumatic subcortical - Encounter MD Kathia hemorrhage of left 06/10/2017 Latasha Peterson [facility] cerebral hemisphere MD Chris ([facility]);Acute KochCarlos MD encephalopathy;Essential Ciaran Ann MD hypertension;Duodenal Estella, Dinorah Adrianna ulcer;Intraventricular MD Maylin hemorrhage Gamaliel Meade, ([facility]);Obstructive MD hydrocephalus;Churg-Strau ss syndrome ([facility]);Late effect of stroke;Dysarthria as late effect of cerebrovascular accident (CVA);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 11/28/2016 Family History Medical History Relation Name Comments No Known Problem Brother Suicidality Brother Liver cancer Father Thrombocytopenia Mother ITP Relation Name Status Comments Brother Alive Brother Father Mother Social History Tobacco Use Types Packs/Day Years Used Date Never Smoker Smokeless Tobacco: Never Used Alcohol Use Drinks/Week oz/Week Comments No Sex Assigned at Date Recorded Not on file Last Filed Vital Signs Vital Sign Reading Time Taken Blood Pressure 115/62 06/20/2017 8:19 AM CARDIOVASCULAR INVASIVE SPECIALIST Pulse 74 06/20/2017 9:04 AM CARDIOVASCULAR INVASIVE SPECIALIST Temperature 36.6 C (97.9 F) 06/20/2017 6:42 AM CARDIOVASCULAR INVASIVE SPECIALIST Respiratory Rate 18 06/20/2017 9:04 AM CARDIOVASCULAR INVASIVE SPECIALIST Oxygen Saturation 98% 06/20/2017 9:04 AM CARDIOVASCULAR INVASIVE SPECIALIST Inhaled Oxygen - - Concentration Weight 61.6 kg (135 lb 12.8 oz) 06/10/2017 6:41 PM CARDIOVASCULAR INVASIVE SPECIALIST Height 165.1 cm (5' 5") 06/10/2017 6:41 PM CARDIOVASCULAR INVASIVE SPECIALIST Body Mass Index 22.6 06/10/2017 6:41 PM CARDIOVASCULAR INVASIVE SPECIALIST Plan of Treatment Health Maintenance Due Date Last Done Comments INFLUENZA VACCINE 04/21/2018 Results * CBC (Hemogram only) (2017 6:49 AM) Only the most recent of 4 results within the time period is included. Component Value Ref Range WBC 8.0 3.5 - 10.5 K/ L RBC 4.54 3.93 - 5.22 M/ L Hemoglobin 14.0 11.2 - 15.7 GM/DL Hematocrit 44.8 34.1 - 44.9 % MCV 98.7 (H) 79.4 - 94.8 fL MCH 30.8 25.6 - 32.2 pg MCHC 31.3 (L) 32.2 - 35.5 GM/DL RDW 16.0 (H) 11.7 - 14.4 % Platelets 189 150 - 450 K/CU MM MPV 9.8 9.4 - 12.3 fL nRBC 0 0 - 0 /100 WBC Specimen Performing Laboratory Blood - Arm, [address] [address] * Basic Metabolic Panel (2017 6:49 AM) Only the most recent of 12 results within the time period is included. Component Value Ref Range Sodium 138 136 - 145 meq/L Potassium 4.6 3.5 - 5.1 meq/L Chloride 110 (H) 98 - 107 meq/L CO2 19 (L) 22 - 29 meq/L BUN 17 7 - 21 mg/dL Creatinine 0.74 0.57 - 1.25 mg/dL Glucose 81 70 - 105 mg/dL Calcium 9.3 8.4 - 10.2 mg/dL EGFR 78Comment: ESTIMATED GFR IS NOT ACCURATE mL/min/1.73 sq m CREATININE CLEARANCE IN PREDICTING GLOMERULAR FILTRATION RATE. ESTIMATED GFR IS NOT APPLICABLE FOR DIALYSIS PATIENTS. Specimen Performing Laboratory Blood - Arm, [address] [address] * Platelet count (06/12/2017 11:55 AM) Component Value Ref Range Platelets 184 150 - 450 K/CU MM Specimen Performing Laboratory Blood - Arm, [address] [address] * EKG-SCANNED (06/11/2017 1:11 PM) * RHYTHM STRIP - SCAN (06/11/2017 1:10 PM) * Urine culture (06/11/2017 12:44 PM) Component Value Ref Range Result Result >100,000 col/mL Klebsiella pneumoniae (A) Specimen Performing Laboratory Urine - Urine, [facility] Catch [address] [place] [id number] Organism Antibiotic Method Susceptibility Klebsiella pneumoniae Amikacin <=2: Susceptible Klebsiella pneumoniae Ampicillin + Sulbactam 8: Susceptible Klebsiella pneumoniae Aztreonam <=1: Susceptible Klebsiella pneumoniae Cefepime <=1: Susceptible Klebsiella pneumoniae Cefoxitin <=4: Susceptible Klebsiella pneumoniae Ceftazidime <=1: Susceptible Klebsiella pneumoniae Ceftriaxone <=1: Susceptible Klebsiella pneumoniae Ertapenem <=0.5: Susceptible Klebsiella pneumoniae Gentamicin <=1: Susceptible Klebsiella pneumoniae Levofloxacin <=0.12: Susceptible Klebsiella pneumoniae Meropenem <=0.25: Susceptible Klebsiella pneumoniae Nitrofurantoin 64: Resistant Klebsiella pneumoniae Piperacillin + Tazobactam <=4: Susceptible Klebsiella pneumoniae Tetracycline <=1: Susceptible Klebsiella pneumoniae Tobramycin <=1: Susceptible Klebsiella pneumoniae Trimethoprim + <=20: Susceptible Sulfamethoxazole * CBC with platelet count + automated diff (06/11/2017 5:06 AM) Only the most recent of 9 results within the time period is included. Component Value Ref Range WBC 7.1 3.5 - 10.5 K/ L RBC 4.39 3.93 - 5.22 M/ L Hemoglobin 13.7 11.2 - 15.7 GM/DL Hematocrit 44.0 34.1 - 44.9 % MCV 100.2 (H) 79.4 - 94.8 fL MCH 31.2 25.6 - 32.2 pg MCHC 31.1 (L) 32.2 - 35.5 GM/DL RDW 15.3 (H) 11.7 - 14.4 % Platelets 43 (L) 150 - 450 K/CU MM MPV 11.5 9.4 - 12.3 fL nRBC 0 0 - 0 /100 WBC % Neutros 77 % % Lymphs 14 % % Monos 7 % % Eos 0 % % Baso 1 % # Neutros 5.51 1.56 - 6.13 K/ L # Lymphs 0.99 (L) 1.18 - 3.74 K/ L # Monos 0.47 (H) 0.24 - 0.36 K/ L # Eos 0.01 (L) 0.04 - 0.36 K/ L # Baso 0.05 0.01 - 0.08 K/ L Immature 2 (H) 0 - 1 % Granulocytes-Relative Specimen Performing Laboratory Blood - Arm, Right [facility] [address] [address] * CBC with platelet count + automated diff (06/11/2017 5:06 AM) Only the most recent of 9 results within the time period is included. Specimen Performing Laboratory Blood Narrative The following orders were created for panel order CBC with platelet count + automated diff. Procedure Abnormality Status --------- - ------ CBC with platelet count ...[[id number]]AbnormalFinal result Please view results for these tests on the individual orders. * Comprehensive metabolic panel (06/11/2017 5:06 AM) Component Value Ref Range Protein, Total 7.3Comment: Specimen markedly hemolyzed 6.0 - 8.3 gm/dL Albumin 3.4 (L)Comment: Specimen markedly hemolyzed 3.5 - 5.0 g/dL Alkaline Phosphatase 48 40 - 150 U/L Total Bilirubin 0.3Comment: Specimen markedly hemolyzed 0.2 - 1.2 mg/dL Sodium 135 (L) 136 - 145 meq/L Potassium 5.4 (H)Comment: Specimen markedly hemolyzed 3.5 - 5.1 meq/L Chloride 107 98 - 107 meq/L CO2 15 (L) 22 - 29 meq/L BUN 14 7 - 21 mg/dL Creatinine 0.67Comment: Specimen markedly hemolyzed 0.57 - 1.25 mg/dL Glucose 66 (L) 70 - 105 mg/dL Calcium 9.4 8.4 - 10.2 mg/dL AST 30Comment: Specimen markedly hemolyzed 5 - 34 U/L ALT 31Comment: Specimen markedly hemolyzed 6 - 55 U/L EGFR 88Comment: ESTIMATED GFR IS NOT ACCURATE mL/min/1.73 sq m CREATININE CLEARANCE IN PREDICTING GLOMERULAR FILTRATION RATE. ESTIMATED GFR IS NOT APPLICABLE FOR DIALYSIS PATIENTS. Specimen Performing Laboratory Blood - Arm, Right [facility] [address] [address] * Urinalysis w/ Microscopic (06/10/2017 9:51 PM) Component Value Ref Range Color, UA Yellow Clarity, UA Hazy Specific [place], UA 1.018 1.001 - 1.035 pH, UA 6.5 5.0 - 8.0 Protein, UA 10 mg/dL (A) Negative Glucose, UA 100 mg/dL (A) Negative Ketones, UA 10 mg/dL (A) Negative Bilirubin, UA Negative Negative Blood, UA Negative Negative Nitrite, UA Positive (A) Negative Leukocytes, UA Moderate (A) Negative Urobilinogen, UA 0.2 0.2 - 1.0 mg/dL RBC, UA 1 /HPF WBC, UA 27 /HPF Bacteria, UA Few Mucus Few Squam Epithel, UA 9 /HPF Specimen Source Urine, Clean Catch Specimen Performing Laboratory Urine - Urine, Clean [facility] Catch [address] [place] [address] * POC-Glucose meter (06/02/2017 4:56 PM) Only the most recent of 48 results within the time period is included. Component Value Ref Range POC-Glucose Meter 131 (H)Comment: TESTED AT [address] 70 - 110 mg /dL [facility] [address] Specimen Performing Laboratory Blood [address] [address] * ECHOCARDIOGRAM REPORT - SCAN (05/28/2017 11:20 AM) * 2D Echo W/Doppler(CW/PW/Color) (05/27/2017 4:16 PM) Component Value Ref Range Ejection Fraction Specimen Performing Laboratory 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 Clinical History HGB 12.5 HCT 39.5 % CHURG-KATHY SYNDROME, Contrast Medium: Definity and Bubble Study. Height: 65 inches Weight: 64.86 kg (143 lbs) BSA: 1.72 m^2 BMI: 23.8 kg/m^2 HR: 57 bpm BP: 94/49 mmHg Summary Systemic BP was noted to be decreased during the exam. Sinus bradycardia during the exam. Redundant interatrial septum (not meeting criteria for aneurysm). IV saline contrast injection is indeterminate for a PFO (patent foramen ovale) at rest and post Valsalva due to degree of intracavitary noise artifact. Aortic root size (SInus of Valsalva diameter) is normal . LV endocardium is well visualized with IV ultrasound enhancing agent. The left ventricle is chamber size (by vol index) is normal (female - LVED vol - 29-61ml/m2). Mild concentric LV hypertrophy. Grade 1 diastolic dysfunction (impaired relaxation and low-normal LA pressure). All of the LV segments contract normally . Global LV systolic function normal . LVEF by Bonner's method of disk assessment is normal (>60%) . LA size is normal . Signature Findings Rhythm/BPSystemic BP was noted to be decreased during the exam. Sinus bradycardia during the exam. Left Ventricle LV endocardium is well visualized with IV ultrasound enhancing agent. The left ventricle is chamber size (by vol index) is normal (female - LVED vol - 29-61ml/m2). Mild concentric LV hypertrophy. Grade 1 diastolic dysfunction ( impaired relaxation and low-normal LA pressure). All of the LV segments contract normally . Global LV systolic function normal . LVEF by Bonner's method of disk assessment is normal (>60%) . Left AtriumLA size is normal . Right VentricleThe right ventricular chamber size and systolic function are within normal limits. Right Atrium RA size is normal. Atrial SeptumRedundant interatrial septum (not meeting criteria for aneurysm). IV saline contrast injection is indeterminate for a PFO (patent foramen ovale) at rest and post Valsalva due to degree of intracavitary noise artifact. Aortic Valve Normal AoV structure. Mitral Valve Mild MV leaflet thickening. Mild mitral regurgitation. Tricuspid ValveTV structure is normal. A trace of tricuspid regurgitation. Unable to estimate peak systolic PA pressure; inadequate TR velocity signal. Pulmonic Valve Normal PV structure and function. AortaAortic root size (SInus of Valsalva diameter) is normal . PericardiumNo pericardial effusion is visualized. IVC/SVC/PA/PV/PleuralThe estimated RA pressure by IVC dynamics 0-5mmHg . Chambers/Structures Left Atrium LA Dimension: 2.59 cmLA Area: 13.55 cm^2 LA Volume: 28.19 ml LA Vol. Index: 16 ml/m^2 Left Ventricle LVIDd: 3.92 cm LVEDV 2D:44.98 ml LV Septum Diastolic: 0.85 cm LVESV 2D:4.96 ml LV PW Diastolic: 0.82 cm LV IVRT: 109.6 msec LVOT Diameter: 1.95 cm LVEF 2D Teich: 89 % Right Atrium RA Vol. (Sngl Plane): 36.09 ml Aorta Ao Root S of Eve.: 3 cm Ascending Aorta: 2.94 cm Shunts QS:73.47 ml Doppler/Quantitative Measurements Mitral Valve MV Peak E-Wave: 0.84 m/sMV Peak A-Wave: 1.1 m/s E/ A Ratio: 0.76 Peak Gradient: 2.8 mmHg Deceleration Time: 247.8 msec Tissue Doppler E' Lateral Velocity: 0.11 m/s E/E': 7.88 LVOT Peak Velocity: 1.15 m/s Peak Gradient: 5.28 mmHg Mean Velocity: 0.73 m/s Mean Gradient: 2.53 mmHg LVOT Diameter: 1.95 cmLVOT VTI: 24.6 cm LVOT Area: 2.99 cm^2LVOT SV:73.43 ml LVOT CO: 4.19 l/min LVOT CI: 2.44 l/min/m^2 Procedure Note Interface, External Ris In - 05/28/2017 10:53 AM CARDIOVASCULAR INVASIVE SPECIALIST Transthoracic Echocardiography Report (TTE) Demographics Patient Name OLIVE SAUER Date of Study 05/27/2017 [place] Gender Female Visit Number [id number] Race Room Number [id number] Number Date of 1950 Referring Physician Age 66 year(s) 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 Clinical History HGB 12.5 HCT 39.5 % CHURG-KATHY SYNDROME, Contrast Medium: Definity and Bubble Study. Height: 65 inches Weight: 64.86 kg (143 lbs) BSA: 1.72 m^2 BMI: 23.8 kg/m^2 HR: 57 bpm BP: 94/49 mmHg Summary Systemic BP was noted to be decreased during the exam. Sinus bradycardia during the exam. Redundant interatrial septum (not meeting criteria for aneurysm). IV saline contrast injection is indeterminate for a PFO (patent foramen ovale) at rest and post Valsalva due to degree of intracavitary noise artifact. Aortic root size (SInus of Valsalva diameter) is normal . LV endocardium is well visualized with IV ultrasound enhancing agent. The left ventricle is chamber size (by vol index) is normal (female - LVED vol - 29-61ml/m2). Mild concentric LV hypertrophy. Grade 1 diastolic dysfunction (impaired relaxation and low-normal LA pressure). All of the LV segments contract normally . Global LV systolic function normal . LVEF by Bonner's method of disk assessment is normal (>60%) . LA size is normal . Signature Findings Rhythm/BP Systemic BP was noted to be decreased during the exam. Sinus bradycardia during the exam. Left Ventricle LV endocardium is well visualized with IV ultrasound enhancing agent. The left ventricle is chamber size (by vol index) is normal (female - LVED vol - 29-61ml/m2). Mild concentric LV hypertrophy. Grade 1 diastolic dysfunction (impaired relaxation and low-normal LA pressure). All of the LV segments contract normally . Global LV systolic function normal . LVEF by Bonner's method of disk assessment is normal (>60%) . Left Atrium LA size is normal . Right Ventricle The right ventricular chamber size and systolic function are within normal limits. Right Atrium RA size is normal. Atrial Septum Redundant interatrial septum (not meeting criteria for aneurysm). IV saline contrast injection is indeterminate for a PFO (patent foramen ovale) at rest and post Valsalva due to degree of intracavitary noise artifact. Aortic Valve Normal AoV structure. Mitral Valve Mild MV leaflet thickening. Mild mitral regurgitation. Tricuspid Valve TV structure is normal. A trace of tricuspid regurgitation. Unable to estimate peak systolic PA pressure; inadequate TR velocity signal. Pulmonic Valve Normal PV structure and function. Aorta Aortic root size (SInus of Valsalva diameter) is normal . Pericardium No pericardial effusion is visualized. IVC/SVC/PA/PV/Pleural The estimated RA pressure by IVC dynamics 0-5mmHg . Chambers/Structures Left Atrium LA Dimension: 2.59 cm LA Area: 13.55 cm^2 LA Volume: 28.19 ml LA Vol. Index: 16 ml/m^2 Left Ventricle LVIDd: 3.92 cm LVEDV 2D:44.98 ml LV Septum Diastolic: 0.85 cm LVESV 2D:4.96 ml LV PW Diastolic: 0.82 cm LV IVRT: 109.6 msec LVOT Diameter: 1.95 cm LVEF 2D Teich: 89 % Right Atrium RA Vol. (Sngl Plane): 36.09 ml Aorta Ao Root S of Eve.: 3 cm Ascending Aorta: 2.94 cm Shunts QS:73.47 ml Doppler/Quantitative Measurements Mitral Valve MV Peak E-Wave: 0.84 m/s MV Peak A-Wave: 1.1 m/s E/A Ratio: 0.76 Peak Gradient: 2.8 mmHg Deceleration Time: 247.8 msec Tissue Doppler E' Lateral Velocity: 0.11 m/s E/E': 7.88 LVOT Peak Velocity: 1.15 m/s Peak Gradient: 5.28 mmHg Mean Velocity: 0.73 m/s Mean Gradient: 2.53 mmHg LVOT Diameter: 1.95 cm LVOT VTI: 24.6 cm LVOT Area: 2.99 cm^2 LVOT SV:73.43 ml LVOT CO: 4.19 l/min LVOT CI: 2.44 l/min/m^2 * CT brain without IV contrast portable (05/27/2017 3:58 PM) Only the most recent of 3 results within the time period is included. Specimen Performing Laboratory GE RIS Narrative FINAL REPORT CT head without contrast 05/27/2017 3:57 [...] unchanged in position. The skull is unremarkable. IMPRESSION: 1. Since 05/21/2017, slight decrease in intraventricular hemorrhage volume. 2. Stable left anterior striatocapsular intraparenchymal hemorrhage volume. 3. Increased ischemic and/or nonischemic edema in the adjacent left corpus striatum and whitehead radiata. 4. No hydrocephalus or concerning mass effect. Signed: Hermilo Holloway MD Report Verified Date/Time:05/27/2017 16:00:54 Reading Location: [facility] Radiology Reading Room Procedure Note Interface, External Ris In - 05/27/2017 4:03 PM CARDIOVASCULAR INVASIVE SPECIALIST FINAL REPORT CT head without contrast 05/27/2017 3:57 [...] unchanged in position. The skull is unremarkable. IMPRESSION: 1. Since 05/21/2017, slight decrease in intraventricular hemorrhage volume. 2. Stable left anterior striatocapsular intraparenchymal hemorrhage volume. 3. Increased ischemic and/or nonischemic edema in the adjacent left corpus striatum and whitehead radiata. 4. No hydrocephalus or concerning mass effect. Signed: Hermilo Holloway MD Report Verified Date/Time: 05/27/2017 16:00:54 Reading Location: [facility] Radiology Reading Room * XR abdomen / KUB 1 view (05/24/2017 9:39 AM) Specimen Performing Laboratory expressor software RIS Narrative FINAL REPORT Abdomen one view Comparison: None. Reason for exam:abdominal pain Findings: Contrast pattern is nonspecific, and nonobstructive. A small to moderate amount of fecal content is seen in the colon, and air is noted in the rectum. No free air is identified. No suspicious calcifications. Osseous structures demonstrate mild degenerative changes. Signed: Jordan Mathews MD Report Verified Date/Time:05/24/2017 09:42:30 Reading Location: [facility] Radiology Reading Room Procedure Note Interface, External Ris In - 05/24/2017 9:44 AM CDT FINAL REPORT Abdomen one view Comparison: None. Reason for exam: abdominal pain Findings: Contrast pattern is nonspecific, and nonobstructive. A small to moderate amount of fecal content is seen in the colon, and air is noted in the rectum. No free air is identified. No suspicious calcifications. Osseous structures demonstrate mild degenerative changes. Signed: Jordan Mathews MD Report Verified Date/Time: 05/24/2017 09:42:30 Reading Location: [facility] Radiology Reading Room * Lipase (05/24/2017 9:37 AM) Component Value Ref Range Lipase 65 8 - 78 U/L Specimen Performing Laboratory Blood - Arm, [address] [address] * Amylase (05/24/2017 9:37 AM) Component Value Ref Range Amylase 64 25 - 125 U/L Specimen Performing Laboratory Blood - Arm, [address] [address] * Hepatic function panel (05/24/2017 9:37 AM) Only the most recent of 2 results within the time period is included. Component Value Ref Range Protein, Total 5.9 (L) 6.0 - 8.3 gm/dL Albumin 3.2 (L) 3.5 - 5.0 g/dL Total Bilirubin 0.7 0.2 - 1.2 mg/dL Bilirubin, Direct 0.3 0.1 - 0.5 mg/dL Alkaline Phosphatase 55 40 - 150 U/L AST 14 5 - 34 U/L ALT 14 6 - 55 U/L Specimen Performing Laboratory Blood - Arm, [address] [address] * Phosphorus (05/21/2017 5:00 AM) Only the most recent of 2 results within the time period is included. Component Value Ref Range Phosphorus 2.5 2.3 - 4.7 mg/dL Specimen Performing Laboratory Blood [address] [address] Narrative Once on admission and Daily AM afterwards * Magnesium (05/21/2017 5:00 AM) Only the most recent of 2 results within the time period is included. Component Value Ref Range Magnesium 2.0 1.6 - 2.6 mg/dL Specimen Performing Laboratory Blood [address] [address] Narrative Once on admission and Daily AM afterwards * aPTT (05/20/2017 2:48 PM) Component Value Ref Range PTT 25.2 22.5 - 36.0 seconds Specimen Performing Laboratory Blood - Arm, [address] [address] * Prothrombin time/INR (05/20/2017 2:48 PM) Component Value Ref Range Protime 12.8 11.7 - 14.7 seconds INR 1.0 <=5.9 Specimen Performing Laboratory Blood - Arm, [address] [address] Narrative RECOMMENDED COUMADIN/WARFARIN INR THERAPY RANGES STANDARD DOSE: 2.0 - 3.0 Includes: PROPHYLAXIS for venous thrombosis, systemic embolization; TREATMENT for venous thrombosis and/or pulmonary embolus. HIGH RISK: Target INR is 2.5-3.5 for patients with mechanical heart valves. after 11/28/2016
[2017-11-29] MEDS ORDERED: ONDANSETRON HCL 4 MG ORAL DISINTEGRATING TAB PO ONE (15:45)
--- NOTE | 2017-11-29 16:47 | Diagnostic Imaging Report ---
PROCEDURE:X-RAY RIGHT SHOULDER, COMPLETE COMPARISON:None. INDICATIONS:FALL, RIGHT SHOULDER PAIN FINDINGS: Normal mineralization. No acute displaced fracture or dislocation. No lytic or blastic lesion. No a.c. separation. Glenohumeral joint is unremarkable. Soft tissues are unremarkable. Visualized portions of the right lung are clear.. CONCLUSION: No acute abnormalities. Alfredo Kuhn M.D. Dictated by: Alfredo Kuhn M.D. on 11/29/2017 at 16:49 Electronically approved by: Alfredo Kuhn M.D. on 11/29/2017 at 16:49
--- NOTE | 2017-11-29 16:49 | Diagnostic Imaging Report ---
PROCEDURE: Frontal and lateral views of the chest. COMPARISON: None. INDICATIONS: FALL YESTERDAY FINDINGS: Lines/tubes: None. Lungs: The lungs are well inflated and clear. There is no evidence of pneumonia or pulmonary edema. Pleura: There is no pleural effusion or pneumothorax. Heart and mediastinum: Cardiac silhouette is unremarkable. Pulmonary vasculature is normal. Bones: No acute bony abnormality. IMPRESSION: 1. No acute cardiothoracic abnormality. Alfredo Kuhn M.D. Dictated by: Alfredo Kuhn M.D. on 11/29/2017 at 16:51 Electronically approved by: Alfredo Kuhn M.D. on 11/29/2017 at 16:51
--- NOTE | 2017-11-29 16:52 | Diagnostic Imaging Report ---
PROCEDURE:HAND RIGHT 3 VIEWS AP \T\ LAT COMPARISON:None. INDICATIONS:RIGHT HAND PAIN, FALL YESTERDAY FINDINGS: Mild osteopenia. Acute, transverse fracture through the base of the fourth finger proximal phalanx, with mild ulnar displacement. No intra-articular extension. Other bony structures are intact. No lytic or blastic lesions. Soft tissue swelling in the fourth finger. CONCLUSION: Acute, transverse, mildly displaced fracture through the base of the fourth finger proximal phalanx, without intra-articular extension. Alfredo Kuhn M.D. Dictated by: Alfredo Kuhn M.D. on 11/29/2017 at 16:54 Electronically approved by: Alfredo Kuhn M.D. on 11/29/2017 at 16:54
--- NOTE | 2017-11-29 16:54 | Diagnostic Imaging Report ---
PROCEDURE:X-RAY RIGHT KNEE, THREE OR MORE VIEWS COMPARISON:None. INDICATIONS:FALL, RIGHT KNEE PAIN YESTERDAY FINDINGS: Mild osteopenia. No acute, displaced fracture or dislocation. No lytic or blastic lesion. Joint spaces are relatively well-preserved. Soft tissue swelling anterior to the patella. No significant suprapatellar effusion. CONCLUSION: Soft tissue swelling anterior to the patella. No underlying bony abnormality. Alfredo Kuhn M.D. Dictated by: Alfredo Kuhn M.D. on 11/29/2017 at 16:55 Electronically approved by: Alfredo Kuhn M.D. on 11/29/2017 at 16:55
--- NOTE | 2017-11-29 17:16 | Diagnostic Imaging Report ---
History:Fall Comparison studies:CT head [id number] Technique: Axial images were obtained from the skull base to the vertex. Coronal and sagittal images reconstructed from the axial data. Intravenous contrast: None Findings: Scalp/skull: No acute abnormalities. Left frontal bur hole. Extra-axial spaces: No masses. No fluid collections. Brain sulci: Mildly prominent. Ventricles: Mild compensatory dilatation. No hydrocephalus. Parenchyma: Few hypodensities in the supratentorial white matter are small vessel ischemic changes. Left striatocapsular encephalomalacia. No masses, hemorrhage or acute cortical vascular insults. Sellar/suprasellar region: No abnormalities. Craniocervical junction: Patent foramen magnum. No Chiari one malformation. Incidental findings: Atherosclerotic calcifications in the carotid siphons . Impression: No acute abnormalities. Chronic findings: 1. Mild generalized volume loss. 2. Mild supratentorial white matter small vessel ischemic changes. 3. Left striatocapsular encephalomalacia Signed by: DR Cayetano Payne M.D. on 11/29/2017 5:13 PM
--- NOTE | 2017-11-29 17:26 | Diagnostic Imaging Report ---
History:Fall Comparison studies: None Technique: Axial images were obtained through the maxillofacial region. Coronal and sagittal images reconstructed from the axial data. Intravenous contrast: None Findings: Soft tissues: Right premaxillary tissue swelling and hematoma Bones: Depressed fracture of the right anterior maxillary sinus wall. Orbits: Globes: Intact Extra or intraconal abnormalities: None. Paranasal sinuses: Hemorrhagic opacification of the right maxillary sinus IMPRESSION: Right premaxillary tissue swelling and hematoma with depressed fracture of the right anterior maxillary sinus wall. Signed by: DR Cayetano Payne M.D. on 11/29/2017 5:23 PM
--- NOTE | 2017-11-29 17:29 | Diagnostic Imaging Report ---
History: Fall Comparison studies: None Technique: Axial images were obtained through the cervical region.. Coronal and sagittal images reconstructed from the axial data.. Intravenous contrast: None Findings: Fractures: None. Soft tissues: No gross abnormalities. Atlantoaxial articulation: No acute abnormality. Alignment: Normal lordosis. No scoliosis. Cervicomedullary junction: No abnormalities. The foramen magnum is patent. Vertebrae: No infection or neoplasm. Degenerative changes: Uncinate process hypertrophy with patent canal and foramina . IMPRESSION: 1. No acute cervical spine abnormalities. 2. Cannot exclude ligament, spinal cord and or vascular abnormalities on the basis of this examination. Signed by: DR Cayetano Payne M.D. on 11/29/2017 5:26 PM
[2017-11-29] MEDS ORDERED: CEFAZOLIN SOD 1 GM in WATER STERILE 10ML VIAL 10 ML IM SCH (18:00)
[2017-11-29] MEDS ORDERED: CEFAZOLIN SOD 1 GM VIAL IM ONE (18:00)
[2017-11-29 18:38] VITALS: BP 151/91
== END 2017-11-29 17:15 | disposition home or self-care (01) ==
LOC: ER 15:30
DX: G89.11 Acute pain due to trauma (principal); S62.614A Displaced fracture of proximal phalanx of right ring finger, initial encounter for closed fracture; S02.40CA Maxillary fracture, right side, initial encounter for closed fracture; S00.83XA Contusion of other part of head, initial encounter; S40.011A Contusion of right shoulder, initial encounter; S60.221A Contusion of right hand, initial encounter; S80.01XA Contusion of right knee, initial encounter; W01.0XXA Fall on same level from slipping, tripping and stumbling without subsequent striking against object, initial encounter; Y92.008 Other place in unspecified non-institutional (private) residence as the place of occurrence of the external cause
CPT/HCPCS: 29125; 70450; 70486; 71046; 72125; 73030; 73130; 73562; 99284; J0690

== ENCOUNTER 2017-12-04 08:17 | Outpatient (RCR) | payer MEDICARE, OTHER | END 2017-12-19 | LOC: OT 08:17 | PROVIDERS: ATTEND Plastic Surgery | DX: S62.614A Displaced fracture of proximal phalanx of right ring finger, initial encounter for closed fracture (principal) | CPT/HCPCS: G8987; G8988; G8989; L3913 ==

== ENCOUNTER 2018-01-15 09:00 | Outpatient (RCR) | payer OTHER | END 2018-01-18 | LOC: OT 09:00 | PROVIDERS: ATTEND Plastic Surgery | DX: S62.614D Displaced fracture of proximal phalanx of right ring finger, subsequent encounter for fracture with routine healing (principal); M25.641 Stiffness of right hand, not elsewhere classified; R53.1 Weakness | CPT/HCPCS: 97022 ×5; 97110 ×5; 97165; 97760; G8987; G8988 ==

== ENCOUNTER 2018-01-24 08:57 | Outpatient (RCR) | payer MEDICARE, OTHER | END 2018-02-18 | LOC: OT 08:57 | PROVIDERS: ATTEND Plastic Surgery | DX: S62.614D Displaced fracture of proximal phalanx of right ring finger, subsequent encounter for fracture with routine healing (principal); M79.641 Pain in right hand; M25.641 Stiffness of right hand, not elsewhere classified; R53.1 Weakness ==